=== PATIENT | male | born 1965 | race Caucasian/White ===

== ENCOUNTER 2016-10-02 23:02 | Emergency (ER) | payer OTHER ==
[~2016-10-02] VITALS: Ht 177.8 cm; Wt 127.0 kg
--- NOTE | ~2016-10-02 | EKG ---
[address] [place] [address] ELECTROCARDIOGRAM REPORT Name: DESTIN WHITFIELD ANABEL [facility] [id number] Admission: 10/02/16 Attend Phys: Discharge: 10/03/16 Date of : 69 Report #: [id number] THIS REPORT FOR: //name// [facility] ED Test Date: 2016-10-02 Test Time: 23:29:20 Pat Name: DESTIN WHITFIELD Department: Room: Gender: Spring Former: FEDERICO : 1965 Requested By: Giovani Tripathi Order Number: [id number] MD: Devonte Camacho Measurements Intervals [place] Rate: 91 P: 46 [place]: 156 QRS: 39 QRSD: 100 T: 62 QT: 359 QTc: 442 Interpretive Statements Sinus rhythm No significant abnormality Compared to ECG 01/30/2015 12:20:15 No significant change was found Electronically Signed On 10-03-2016 16:00:44 CDT by Devonte Camacho [email or web address] <ELECTRONICALLY SIGNED> By: Devonte Camacho MD, [facility] 10/03/16 1600 2329 2329 Devonte Camacho MD, FACC /EPI
--- NOTE | ~2016-10-02 | EKG ---
[address] [place] [address] ELECTROCARDIOGRAM REPORT Name: WHITFIELDDESTIN Room #: DEP Julian#: [id number] Admission: 10/02/16 Attend Phys: Discharge: 10/03/16 Date of : 69 Report #: [id number] THIS REPORT FOR: //name// [facility] ED Test Date: 2016-10-02 Test Time: 23:28:41 Pat Name: DESTIN WHITFIELD Department: Room: Gender: Court Assistant: FEDERICO : 1965 Requested By: Giovani Tripathi Order Number: [id number] MD: Measurements Intervals [place] Rate: 102 P: 42 [place]: 160 QRS: 43 QRSD: 92 T: 54 QT: 349 QTc: 455 Interpretive Statements Sinus tachycardia Probable left atrial enlargement Baseline wander in lead(s) V2 Compared to ECG 01/30/2015 12:20:15 No significant changes [email or web address] By: 27 27 Epiphany Epiphany, /EPI
--- NOTE | ~2016-10-02 | EKG ---
[address] [place] [address] ELECTROCARDIOGRAM REPORT Name: DESTIN WHITFIELD ANABEL [facility] [id number] Admission: 10/02/16 Attend Phys: Discharge: 10/03/16 Date of : 69 Report #: [id number] THIS REPORT FOR: //name// [facility] ED Test Date: 2016-10-02 Test Time: 23:28:41 Pat Name: DESTIN WHITFIELD Department: Room: Gender: Brake Lining Curer: FEDERICO : 1965 Requested By: Giovani Tripathi Order Number: [id number] MD: Devonte Camacho Measurements Intervals [place] Rate: 102 P: 42 [place]: 160 QRS: 43 QRSD: 92 T: 54 QT: 349 QTc: 455 Interpretive Statements Sinus tachycardia Baseline wander in lead(s) V2 Compared to ECG 01/30/2015 12:20:15 No significant changes Electronically Signed On 10-03-2016 16:00:14 CDT by Devonte Camacho [email or web address] <ELECTRONICALLY SIGNED> By: Devonte Camacho MD, [facility] 10/03/16 1600 27 Devonte Camacho MD, FACC /EPI
[~2016-10-02 23:02] MED LIST: BP MED; CLEOCIN HCL150 MG PO; COLACE100 MG PO; FLEXERIL PO; HYDROCODON-ACE1 EAC5 PO; KEFLEX500 MG PO; LOPRESSOR25 PO; METFORMIN HCL500 MG; NORCO 5-325 TA1 EACH PO; ULTRAM 50MG TAB50 MG PO
[2016-10-02 23:38] LABS: BASOPHILS 0.9 % (0.0-2.0); HEMATOCRIT 46.6 % (42.0-52.0); HEMOGLOBIN 15.9 gm/dL (14.0-18.0); LYMPHOCYTES 22.2 % (24.0-44.0); MCH 29.9 pg (26.0-34.0); MCHC 34.1 g/dL (28.0-37.0); MCV 87.6 fL (80.0-100.0); MONOCYTES 8.4 % (1.0-8.0); PLATELET COUNT 226 thou/uL (150-400); POLYS 67.5 % (36.0-66.0); RBC 5.32 mil/uL (4.50-6.00); RDW 15.1 % (10.5-14.5); WBC 10.4 thou/uL (4.0-11.0)
[2016-10-02 23:46] LABS: POTASSIUM 4.3 mmol/L (3.5-5.1)
[2016-10-02 23:50] LABS: ALBUMIN 3.8 g/dL (3.4-5.0); TOTAL BILIRUBIN 0.3 mg/dL (<0.1-1.0); TOTAL PROTEIN 7.8 g/dL (6.4-8.2)
[2016-10-02 23:53] LABS: MANUAL DIFF NO
[2016-10-03] MEDS ORDERED: PRILOSEC OTC20 MG PO (01:56)
[2016-10-03] MEDS ORDERED: ULTRAM 50MG TAB50 MG PO (01:56)
[2016-10-03] MEDS ORDERED: CARAFATE 1 GM TA1 G1 PO (01:56)
[2016-10-03 02:38] LABS: URINE BILIRUBIN NEGATIVE (Negative); URINE COLOR YELLOW; URINE GLUCOSE-RANDOM* NEGATIVE (Negative); URINE KETONES NEGATIVE (Negative); URINE PROTEIN (DIPSTICK) NEGATIVE (Negative); URINE SPECIFIC GRAVITY 1.015 (1.003-1.035)
[2016-10-03 02:39] LABS: URINE BLOOD NEGATIVE (Negative); URINE LEUKOCYTES-REFLEX NEGATIVE (Negative); URINE UROBILINOGEN 0.2 E.U./dl (0.2-1.0)
[2016-10-03 02:49] VITALS: BP 156/84
[2016-10-03 03:08] LABS: AMP/METHAMP POSITIVE (Negative); BARBITURATES Negative (Negative); BENZODIAZEPINES Negative (Negative); COCAINE Negative (Negative); METHADONE Negative (Negative); OPIATES POSITIVE (Negative); PCP Negative (Negative); THC Negative (Negative)
== END 2016-10-03 02:50 | disposition home or self-care (01) ==
LOC: ER 23:02
PROVIDERS: Emergency Medicine
DX: K29.70 Gastritis, unspecified, without bleeding (principal); I10 Essential (primary) hypertension; E11.9 Type 2 diabetes mellitus without complications; F17.210 Nicotine dependence, cigarettes, uncomplicated; Z88.6 Allergy status to analgesic agent

== ENCOUNTER 2018-03-15 06:59 | Emergency (ER) | payer OTHER ==
[~2018-03-15] VITALS: Ht 177.8 cm; Wt 140.6 kg
[~2018-03-15 06:59] MED LIST changes: +AMOXICILLIN 50500 MG PO; +BIAXIN 500 MG500 M2 PO; +CARAFATE 1 GM TA1 G1 PO; +KEFLEX500 M1 PO; -METFORMIN HCL500 MG; +METFORMIN HCL500 MG PO; +PRILOSEC OTC20 MG PO; +PROBIOTIC1 EAC2 PO; +PROTONIX40 M1 PO
[2018-03-15] MEDS ORDERED: METFORMIN HCL500 MG PO (08:18)
[2018-03-15] MEDS ORDERED: LOPRESSOR25 PO ×2 (08:18)
[2018-03-15] MEDS ORDERED: NORCO 5-325 TA1 EACH PO (08:19)
[2018-03-15] MEDS ORDERED: AZITHROMYCIN 2250 MG PO (08:30)
[2018-03-15 08:38] VITALS: BP 138/77
== END 2018-03-15 08:38 | disposition home or self-care (01) ==
LOC: ER 06:59
DX: J20.9 Acute bronchitis, unspecified (principal); R07.89 Other chest pain; I10 Essential (primary) hypertension; E11.9 Type 2 diabetes mellitus without complications; F17.210 Nicotine dependence, cigarettes, uncomplicated; Z88.6 Allergy status to analgesic agent

== ENCOUNTER 2018-03-18 08:48 | Emergency (ER) | payer OTHER ==
[~2018-03-18] VITALS: Ht 177.8 cm; Wt 140.6 kg
--- NOTE | ~2018-03-18 | EKG ---
[address] [facility] [place] [address] ELECTROCARDIOGRAM REPORT Name: DESTIN WHITFIELD ANABEL Room #: DEP Julian#: [id number] Admission: 03/18/18 Attend Phys: Discharge: 03/18/18 Date of : 69 Report #: [id number] THIS REPORT FOR: //name// [facility] ED Test Date: 2018-03-18 Test Time: 09:27:22 Pat Name: DESTIN WHITFIELD Department: Room: Gender: Teradata Developer: aj : 1965 Requested By: Gia Maldonado Order Number: [id number] MD: Pete Summers Measurements Intervals [place] Rate: 83 P: 49 [place]: 162 QRS: 44 QRSD: 95 T: 77 QT: 381 QTc: 448 Interpretive Statements Sinus rhythm Compared to ECG 10/02/2016 23:29:20 No significant changes Electronically Signed On 03-19-2018 23:24:48 CLINICAL INFORMATICS SPECIALIST by Pete Summers [email or web address] <ELECTRONICALLY SIGNED> By: Pete Summers MD 03/19/18 2324 0927 09 Pete Summers MD /RAYSA
[~2018-03-18 08:48] MED LIST changes: +AZITHROMYCIN 2250 MG PO
[2018-03-18 09:18] LABS: ABSOLUTE NEUTROPHILS 5.3 thou/uL (1.4-8.2); BASOPHILS 1.1 % (0.0-2.0); EOSINOPHILS 3.7 % (0.0-3.0); HEMATOCRIT 46.5 % (42.0-52.0); HEMOGLOBIN 15.8 gm/dL (14.0-18.0); LYMPHOCYTES 22.6 % (24.0-44.0); MCH 29.8 pg (26.0-34.0); MCHC 33.9 g/dL (28.0-37.0); MCV 87.8 fL (80.0-100.0); MONOCYTES 10.9 % (1.0-8.0); PLATELET COUNT 262 thou/uL (150-400); POLYS 61.7 % (36.0-66.0); RBC 5.29 mil/uL (4.50-6.00); RDW 14.2 % (10.5-14.5); WBC 8.7 thou/uL (4.0-11.0)
[2018-03-18 09:26] LABS: ANION GAP 6 mmol/L (7-16); BUN 20 mg/dL (7-18); CALCIUM 9.1 mg/dL (8.5-10.1); CHLORIDE 104 mmol/L (98-107); CO2 29 mmol/L (21-32); CREATININE 1.1 mg/dL (0.7-1.3); GLUCOSE 112 mg/dL (74-106); POTASSIUM 4.4 mmol/L (3.5-5.1); SODIUM 139 mmol/L (136-145)
[2018-03-18 09:34] LABS: ALBUMIN 3.7 g/dL (3.4-5.0); DIRECT BILIRUBIN < 0.1 mg/dL (<0.1-0.3); LIPASE 202 U/L (73-393); SGOT 33 U/L (15-37); SGPT 67 U/L (30-65); TOTAL BILIRUBIN 0.4 mg/dL (<0.1-1.0); TOTAL PROTEIN 8.2 g/dL (6.4-8.2); TROPONIN-I <0.06 ng/mL (<0.06)
[2018-03-18 12:12] LABS: URINE BILIRUBIN NEGATIVE (Negative); URINE BLOOD NEGATIVE (Negative); URINE CLARITY CLEAR; URINE COLOR YELLOW; URINE GLUCOSE-RANDOM* NEGATIVE (Negative); URINE KETONES NEGATIVE (Negative); URINE LEUKOCYTES NEGATIVE (Negative); URINE NITRITE NEGATIVE (Negative); URINE PROTEIN (DIPSTICK) NEGATIVE (Negative); URINE SPECIFIC GRAVITY >= 1.030 (1.005-1.035); URINE UROBILINOGEN 0.2 E.U./dl (0.2-1.0)
[2018-03-18] MEDS ORDERED: PROTONIX40 MG PO ×2 (14:44)
[2018-03-18] MEDS ORDERED: AMOXICILLIN 50500 MG PO (14:44)
[2018-03-18] MEDS ORDERED: BIAXIN 500 MG500 M2 PO (14:44)
[2018-03-18] MEDS ORDERED: OXYCODONE HCL 55 MG PO (14:45)
[2018-03-18 15:36] VITALS: BP 153/88
== END 2018-03-18 14:55 | disposition home or self-care (01) ==
LOC: ER 08:48
PROVIDERS: Student in an Organized Health Care Education/Training Program
DX: B96.81 Helicobacter pylori [H. pylori] as the cause of diseases classified elsewhere (principal); F17.210 Nicotine dependence, cigarettes, uncomplicated; I10 Essential (primary) hypertension; E11.9 Type 2 diabetes mellitus without complications; Z88.6 Allergy status to analgesic agent

== ENCOUNTER 2018-05-14 08:34 | Emergency (ER) | payer OTHER ==
[~2018-05-14] VITALS: Ht 177.8 cm; Wt 120.2 kg
[~2018-05-14 08:34] MED LIST changes: +OXYCODONE HCL 55 MG PO; +PROTONIX40 MG PO
[2018-05-14 09:14] LABS: ANION GAP 13 mmol/L (7-16); BUN 17 mg/dL (7-18); CALCIUM 9.8 mg/dL (8.5-10.1); CHLORIDE 103 mmol/L (98-107); CO2 23 mmol/L (21-32); CREATININE 1.5 mg/dL (0.7-1.3); GLUCOSE 154 mg/dL (74-106); POTASSIUM 3.8 mmol/L (3.5-5.1); SODIUM 139 mmol/L (136-145)
[2018-05-14 09:23] LABS: ALBUMIN 3.6 g/dL (3.4-5.0); LIPASE 507 U/L (73-393); SGOT 23 U/L (15-37); SGPT 31 U/L (30-65); TOTAL BILIRUBIN 0.4 mg/dL (<0.1-1.0); TOTAL PROTEIN 7.2 g/dL (6.4-8.2); TROPONIN-I <0.06 ng/mL (<0.06)
[2018-05-14 10:25] LABS: HEMATOCRIT 47.2 % (42.0-52.0); HEMOGLOBIN 16.1 gm/dL (14.0-18.0); MCH 29.5 pg (26.0-34.0); MCV 86.8 fL (80.0-100.0); RBC 5.44 mil/uL (4.50-6.00); RDW 14.9 % (10.5-14.5); WBC 9.5 thou/uL (4.0-11.0)
[2018-05-14 11:06] LABS: URINE CLARITY CLEAR; URINE COLOR YELLOW
[2018-05-14 11:07] LABS: URINE BILIRUBIN NEGATIVE (Negative); URINE BLOOD NEGATIVE (Negative); URINE GLUCOSE-RANDOM* NEGATIVE (Negative); URINE KETONES NEGATIVE (Negative); URINE LEUKOCYTES-REFLEX NEGATIVE (Negative); URINE NITRITE-REFLEX NEGATIVE (Negative); URINE PROTEIN (DIPSTICK) TRACE (Negative); URINE UROBILINOGEN 0.2 E.U./dl (0.2-1.0)
[2018-05-14 11:14] LABS: AMP/METHAMP POSITIVE (Negative); BARBITURATES Negative (Negative); BENZODIAZEPINES Negative (Negative); COCAINE Negative (Negative); METHADONE Negative (Negative); OPIATES POSITIVE (Negative); PCP Negative (Negative)
--- NOTE | 2018-05-14 12:06 | EKG ---
[address] [address] [place] [address] ELECTROCARDIOGRAM REPORT Name: DESTIN WHITFIELD ANABEL Room #: REG [facility] [id number] Admission: 05/14/18 Attend Phys: Discharge: Date of : 69 Report #: [id number] THIS REPORT FOR: //name// [facility] ED Test Date: 2018-05-14 Test Time: 09:06:15 Pat Name: DESTIN WHITFIELD Department: Room: Gender: M Machine Inker: as : 1965 Requested By: Uziel Gonzalez Order Number: [id number] MD: Devonte Camacho Measurements Intervals [place] Rate: 110 P: 46 NE: 144 QRS: 46 QRSD: 96 T: 62 QT: 342 QTc: 463 Interpretive Statements Sinus tachycardia Otherwise no significant abnormality Compared to ECG 03/18/2018 09:27:22 heart rate has increased Electronically Signed On 05-14-2018 12:06:48 ORACLE SOA DEVELOPER by Devonte Camacho [email or web address] <ELECTRONICALLY SIGNED> By: Devonte Camacho MD, [facility] 05/14/18 1206 0906 5 Devonte Camacho MD, FACC /EPI
[2018-05-14] MEDS ORDERED: NORCO 5-325 TA1 EACH PO (12:53)
[2018-05-14 13:25] VITALS: BP 144/68
== END 2018-05-14 13:26 | disposition home or self-care (01) ==
LOC: ER 08:34
PROVIDERS: Emergency Medicine
DX: R10.12 Left upper quadrant pain (principal); R74.8 Abnormal levels of other serum enzymes; E11.9 Type 2 diabetes mellitus without complications; I10 Essential (primary) hypertension; F17.210 Nicotine dependence, cigarettes, uncomplicated; Z90.49 Acquired absence of other specified parts of digestive tract; Z79.899 Other long term (current) drug therapy; Z88.6 Allergy status to analgesic agent; S22.32XA Fracture of one rib, left side, initial encounter for closed fracture; X58.XXXA Exposure to other specified factors, initial encounter; Y93.89 Activity, other specified; Y92.89 Other specified places as the place of occurrence of the external cause; Y99.8 Other external cause status

== ENCOUNTER 2018-11-01 21:32 | Inpatient (IN) | payer OTHER ==
[~2018-11-01] VITALS: Ht 177.8 cm; Wt 140.5 kg
--- NOTE | ~2018-11-01 | P ---
[facility] [place] [address] PROCEDURE REPORT Name: DESTIN WHITFIELD ANABEL Room #: 209-P ADM IN M.R.#: [id number] Admission: 11/01/18 ������������������ Attend Phys: Pablo Ga MD Discharge: ������������������ Date of : 69 Report #: [id number] THIS REPORT FOR: //name// CC: JANIS physician/PCP FAM unknown Pablo Ga DATE OF SERVICE: 11/05/2018 LOCATION: [facility]. PREOPERATIVE DIAGNOSES: Lymphedema with venous stasis of right leg with blistering wound and extensive nonviable blistered epithelium. POSTOPERATIVE DIAGNOSES: Lymphedema with venous stasis of right leg with blistering wound and extensive nonviable blistered epithelium with right anterior leg 15 cm x 5 cm blistered wound with nonviable skin. PROCEDURE: Selective open wound debridement of right anterior leg with removal of epithelium 15 cm x 5 cm. PROCEDURE DESCRIPTION: Without the need for anesthesia, the patient's right leg was seemed to be blistered with nonviable surface epithelium after the blister had ruptured. Using a forceps and scalpel, nonviable epithelium was removed and unroofed from the blister over 15 cm x 5 cm area exposing a fibrinous base. There was no bleeding. There were some areas at posterior leg, not ready for selective debridement. Selective open wound debridement was done with removal of epithelium from 15 cm x 5 cm area. The patient tolerated the procedure well. Dressings were continued. ��������������������������������������������� ���������������������������������������� By: ��������������������������������������������� 1341 1412 uJstin Grimes MD /wilmar
[2018-11-01 21:41] VITALS: BP 151/76
[2018-11-01 22:06] LABS: HEMATOCRIT 46.2 % (42.0-52.0); HEMOGLOBIN 15.4 gm/dL (14.0-18.0); MCH 29.2 pg (26.0-34.0); MCHC 33.4 g/dL (28.0-37.0); MCV 87.5 fL (80.0-100.0); PLATELET COUNT 179 thou/uL (150-400); RBC 5.28 mil/uL (4.50-6.00); RDW 15.4 % (10.5-14.5); WBC 21.4 thou/uL (4.0-11.0)
[2018-11-01 22:20] LABS: ANION GAP 13 mmol/L (7-16); BUN 13 mg/dL (7-18); CALCIUM 8.4 mg/dL (8.5-10.1); CHLORIDE 99 mmol/L (98-107); CO2 22 mmol/L (21-32); CREATININE 1.4 mg/dL (0.7-1.3); GLUCOSE 144 mg/dL (74-106); POTASSIUM 3.9 mmol/L (3.5-5.1); SODIUM 134 mmol/L (136-145)
[2018-11-01 22:22] LABS: TROPONIN-I <0.06 ng/mL (<0.06)
[2018-11-01 23:13] LABS: ABSOLUTE NEUTROPHILS 19.5 thou/uL (1.4-8.2); PLATELET ESTIMATE NORMAL
[2018-11-01 23:15] VITALS: BP 145/83
[2018-11-01 23:21] VITALS: BP 134/92
[2018-11-02] VITALS (7 sets, daily range): BP systolic 120–146; BP diastolic 48–86
[2018-11-02] MEDS ORDERED: BP MED (00:15)
[2018-11-02] MEDS ORDERED: METFORMIN HCL500 MG PO ×2 (00:15)
[2018-11-02 04:04] LABS: ALBUMIN 2.7 g/dL (3.4-5.0); CALCIUM 7.9 mg/dL (8.5-10.1); CREATININE 1.4 mg/dL (0.7-1.3); MAGNESIUM 1.7 mg/dL (1.8-2.4); POTASSIUM 4.2 mmol/L (3.5-5.1); TOTAL BILIRUBIN 0.9 mg/dL (<0.1-1.0); TOTAL PROTEIN 7.3 g/dL (6.4-8.2)
[2018-11-02 04:39] LABS: HEMATOCRIT 43.7 % (42.0-52.0); HEMOGLOBIN 14.4 gm/dL (14.0-18.0); MCH 29.4 pg (26.0-34.0); MCV 89.2 fL (80.0-100.0); RBC 4.89 mil/uL (4.50-6.00); RDW 15.4 % (10.5-14.5); WBC 17.1 thou/uL (4.0-11.0)
--- NOTE | 2018-11-02 07:40 | EKG ---
[address] [place] [address] ELECTROCARDIOGRAM REPORT Name: DESTIN WHITFIELD ANABEL Room #: 209-P ADM IN M.R.#: [id number] ������������������ Admission: 11/01/18 ������������������ Attend Phys: Pablo Ga MD Discharge: ������������������ Date of : 69 Report #: [id number] ����������������������������������������������������������������� [id number] THIS REPORT FOR: //name// [facility] ED Test Date: 2018-11-01 Test Time: 21:45:25 Pat Name: DESTIN WHITFIELD Department: Room: 209 Gender: M District Court Reporter: ARIN : 1965 Requested By: Giovani Tripathi Order Number: [id number] MD: Devonte Camacho Measurements Intervals [place] Rate: 138 P: 52 SD: 132 QRS: 69 QRSD: 89 T: 57 QT: 310 QTc: 470 Interpretive Statements Sinus tachycardia Otherwise no significant abnormality Compared to ECG 05/14/2018 09:06:15 No significant changes Electronically Signed On 11-02-2018 7:40:32 CDT by Devonte Camacho [email or web address] ��������������������������������������������� <ELECTRONICALLY SIGNED> ���������������������������������������� By: Devonte Camacho MD, [facility] ��������������������������������������������� 11/02/18 0740 2145 44 Devonte Camacho MD, FACC /EPI
--- NOTE | 2018-11-02 09:30 | 2DMMODE ---
[facility] [place] [address] 2 D/M-MODE ECHOCARDIOGRAM Name: DESTIN WHITFIELD ANABEL Room #: 209-P ADM IN M.R.#: [id number] ������������� Admission: 11/01/18 ������������� Attend Phys: Pablo Ga MD Discharge: ��� ������������� ��� Date of : 69 Date of Service: 11/02/18 0930 �� Report #: [id number] �������� ��������������������������������������������[id number] THIS REPORT FOR: //name// APPROVED REPORT Study performed: 11/02/2018 08:47:14 EXAM: Comprehensive 2D, Doppler, and color-flow Echocardiogram Patient Location: Bedside Room #: 209 Status: routine BSA: 2.57 HR: 107 bpm BP: 120/48 mmHg Rhythm: NSR/Tachy Other Information Study Quality: Adequate Indications Elevated BNP, edema, short of breath. Hx: HTN, DM, tobacco abuse. 2D Dimensions RVDd: 40.10 mm IVSd: 12.42 (7-11mm) LVOT Diam: 23.81 (18-24mm) LVDd: 49.35 mm PWd: 12.71 (7-11mm) Ascending Ao: 32.12 (22-36mm) LVDs: 33.88 (25-40mm) Aortic Root: 36.40 mm Volumes Left Atrial Volume (Systole) Single Plane 4CH: 53.70 mL Single Plane 2CH: 50.52 mL LA ESV Index: 22.00 mL/m2 Aortic Valve AoV Peak Ryland.: 1.49 m/s AO Peak Gr.: 8.89 mmHg LVOT Max P.49 mmHg LVOT Max V: 1.06 m/s DEE DEE Vmax: 3.16 cm2 Mitral Valve E/A Ratio: 0.7 MV Decel. Time: 200.47 ms MV E Max Ryland.: 0.69 m/s [facility] [place] [address] 2 D/M-MODE ECHOCARDIOGRAM Name: DESTIN WHITFIELD [facility] Room #: 209-P ADM IN M.R.#: [id number] ������������� Admission: 11/01/18 ������������� Attend Phys: Pablo Ga MD Discharge: ��� ������������� ��� Date of : 69 Date of Service: 11/02/18 0930 �� Report #: [id number] �������� ��������������������������������������������[id number] MV A Ryland.: 0.95 m/s MV PHT: 58.14 ms IVRT: 78.43 ms Pulmonary Valve PV Peak Ryland.: 1.27 m/s PV Peak Gr.: 6.42 mmHg Tricuspid Valve TR Peak Ryland.: 2.69 m/s RAP Estimate: 5.00 mmHg TR Peak Gr.: 29.00 mmHg PA Pressure: 34.00 mmHg Left Ventricle The left ventricle is normal size. There is normal LV segmental wall motion. Mild concentric left ventricular hypertrophy. The left ventricular systolic function is normal. The left ventricular ejection fraction is within the normal range. LVEF is 55-60%. Mild diastolic dysfunction is present (impaired relaxation pattern). Right Ventricle The right ventricle is normal size. The right ventricular systolic function is normal. Atria The left atrium size is normal. The right atrium size is normal. Aortic Valve The aortic valve is normal in structure. No aortic regurgitation is present. There is no aortic valvular stenosis. Mitral Valve The mitral valve is normal in structure. Trace mitral regurgitation. Tricuspid Valve The tricuspid valve is normal in structure. Trace tricuspid regurgitation. Estimated PAP is 35mmHg. Pulmonic Valve The pulmonary valve is normal in structure. There is no pulmonic valvular regurgitation. Great Vessels The aortic root is normal in size. The ascending aorta is normal in [facility] [address] [place] [address] 2 D/M-MODE ECHOCARDIOGRAM Name: DESTIN WHITFIELD ANABEL Room #: 209-P [facility] IN .R.#: [id number] ������������� Admission: 11/01/18 ������������� Attend Phys: Pablo Ga MD Discharge: ��� ������������� ��� Date of : 69 Date of Service: 11/02/18 0930 �� Report #: [id number] �������� ��������������������������������������������[id number] size. IVC is normal in size and collapses >50% with inspiration. Pericardium There is no pericardial effusion. <Conclusion> The left ventricular systolic function is normal. There is normal LV segmental wall motion. LVEF is 55-60%. Mild diastolic dysfunction The aortic valve is normal in structure. No aortic regurgitation or stenosis. The mitral valve is normal in structure. Trace mitral regurgitation. Trace tricuspid regurgitation. Estimated pulmonary artery pressure of 35mmHg. There is no pericardial effusion. ��������������������������������������������� <ELECTRONICALLY SIGNED> ���������������������������������������� By: Devonte Camacho MD, FACC ��������������������������������������������� 11/02/18929 9 9 Devonte Camacho MD, FACC /INF
[2018-11-02 15:57] LABS: URINE BILIRUBIN NEGATIVE (Negative); URINE BLOOD NEGATIVE (Negative); URINE CLARITY CLOUDY; URINE COLOR YELLOW; URINE GLUCOSE-RANDOM* NEGATIVE (Negative); URINE KETONES NEGATIVE (Negative); URINE LEUKOCYTES-REFLEX NEGATIVE (Negative); URINE NITRITE-REFLEX NEGATIVE (Negative); URINE PROTEIN (DIPSTICK) 1+ (Negative); URINE SPECIFIC GRAVITY >= 1.030 (1.005-1.035)
[2018-11-02 16:04] LABS: CASTS None Seen /LPF (None Seen); SQUAMOUS 4-10 Moderate /LPF (0-3); URINE RBC 3-10 Few /HPF (0-2); URINE WBC-REFLEX 0-5 Rare /HPF (0-5)
[2018-11-02 16:05] LABS: BACTERIA-REFLEX None Seen /HPF (None Seen); CRYSTALS None Seen /LPF (None Seen)
[2018-11-03 04:07] LABS: GLYCOHEMOGLOBIN (HGB A1C) 6.6 % (4.8-5.6)
[2018-11-03 06:18] VITALS: BP 144/80
[2018-11-03 08:09] VITALS: BP 150/83
[2018-11-03 11:32] VITALS: BP 102/88
[2018-11-03 20:12] VITALS: BP 151/73
[2018-11-04 00:45] VITALS: BP 145/85
[2018-11-04 05:15] VITALS: BP 145/85
[2018-11-04 06:18] LABS: HEMATOCRIT 41.6 % (42.0-52.0); HEMOGLOBIN 13.3 gm/dL (14.0-18.0); MCH 29.4 pg (26.0-34.0); MCV 91.8 fL (80.0-100.0); PLATELET COUNT 146 thou/uL (150-400); RBC 4.53 mil/uL (4.50-6.00); RDW 16.1 % (10.5-14.5); WBC 8.9 thou/uL (4.0-11.0)
[2018-11-04 06:49] LABS: ALBUMIN 2.2 g/dL (3.4-5.0); CREATININE 0.9 mg/dL (0.7-1.3); MAGNESIUM 1.9 mg/dL (1.8-2.4); POTASSIUM 3.9 mmol/L (3.5-5.1); TOTAL BILIRUBIN 0.4 mg/dL (<0.1-1.0)
[2018-11-04 06:52] LABS: ABSOLUTE NEUTROPHILS 7.2 thou/uL (1.4-8.2)
[2018-11-04 06:53] LABS: ANISOCYTOSIS 2+
[2018-11-04 12:18] VITALS: BP 129/60
[2018-11-04 15:33] VITALS: BP 148/89
[2018-11-04 20:28] VITALS: BP 143/72
[2018-11-05 01:21] VITALS: BP 143/72
[2018-11-05 08:32] VITALS: BP 142/84
[2018-11-05 11:59] VITALS: BP 156/88
[2018-11-05 13:05] LABS: HEMATOCRIT 43.4 % (42.0-52.0); HEMOGLOBIN 14.5 gm/dL (14.0-18.0); MCH 29.2 pg (26.0-34.0); MCHC 33.5 g/dL (28.0-37.0); MCV 87.2 fL (80.0-100.0); RBC 4.98 mil/uL (4.50-6.00); RDW 15.4 % (10.5-14.5); WBC 12.3 thou/uL (4.0-11.0)
[2018-11-05 13:13] LABS: CALCIUM 8.4 mg/dL (8.5-10.1); CREATININE 0.9 mg/dL (0.7-1.3); POTASSIUM 4.2 mmol/L (3.5-5.1)
[2018-11-05 16:05] VITALS: BP 177/81
[2018-11-05 20:09] VITALS: BP 133/66
[2018-11-06 05:06] LABS: HEMATOCRIT 39.3 % (42.0-52.0); MCH 28.9 pg (26.0-34.0); MCV 87.6 fL (80.0-100.0); PLATELET COUNT 205 thou/uL (150-400); RBC 4.49 mil/uL (4.50-6.00); RDW 15.2 % (10.5-14.5); WBC 9.3 thou/uL (4.0-11.0)
[2018-11-06 05:40] VITALS: BP 160/106
[2018-11-06 07:11] LABS: ABSOLUTE NEUTROPHILS 6.5 thou/uL (1.4-8.2); METAMYELOCYTES 1 %
[2018-11-06 07:12] LABS: ANISOCYTOSIS 1+
--- NOTE | 2018-11-06 07:44 | HC ---
[facility] [place] [address] CONSULTATION Name: WHITFIELDSHERYLDESTIN ANABEL Room #: 209-P [facility] IN .R.#: [id number] Admission: 11/01/18 ������������������ Attend Phys: Pablo Ga MD Discharge: ������������������ Date of : [birth year] Report #: [id number] THIS REPORT FOR: //name// CC: JANIS physician/PCP FAM unknown Pablo Ga DATE OF SERVICE: 11/02/2018 CHIEF COMPLAINT: Cellulitis and ulcerations to the right lower extremity. HISTORY OF PRESENT ILLNESS: This is a 53-year-old male patient who was admitted through the Emergency Department with fever, chills, redness, swelling, and drainage to the right lower extremity. He has had nausea and has not eaten that much. He has been coughing and has had ongoing headache as well. I have been asked to see him with regard to wound care. The patient's past medical history positive for history of diabetes mellitus, but he has not taken any of his medications in the last 3 months. He states that he often forgets to take his medications and has not been very rigorous about caring for himself. PAST MEDICAL HISTORY: Positive for diabetes mellitus, previous cellulitis of his right leg in 2016, history of pancreatitis, duodenal ulcer, left knee surgery, hypertension, and bilateral lower extremity edema. FAMILY HISTORY: Positive for diabetes in his mother. SOCIAL HISTORY: The patient smoke cigarettes 1 pack per day for 35 years. No alcohol use. No drug use. ALLERGIES: Include IBUPROFEN. MEDICATIONS: Includes amoxicillin, Biaxin, pantoprazole, OxyIR, metoprolol, and metformin. REVIEW OF SYSTEMS: CONSTITUTIONAL: The patient does have fever and chills. Denies recent weight loss. NEUROLOGICAL: The patient denies focal weakness, numbness, or tingling. EYES: The patient denies visual changes, redness, or drainage. ENT: The patient denies earache, nasal drainage, sore throat. CARDIOVASCULAR: The patient denies chest pain, palpitations, or diaphoresis. PULMONARY: The patient denies cough or shortness of breath. GASTROINTESTINAL: The patient does have nausea and abdominal pain. ORTHOPEDIC: The patient complains of severe pain, swelling, and drainage from the right lower extremity, less so from the left side. [address] [address] CONSULTATION Name: EDSTIN WHITFIELD ANABEL Room #: 209-P ADM IN M.R.#: [id number] Admission: 11/01/18 ������������������ Attend Phys: Pablo Ga MD Discharge: ������������������ Date of : 69 Report #: [id number] Other systems in a 14-point review of systems are negative. PHYSICAL EXAMINATION: VITAL SIGNS: Include temperature 36.4, pulse 100, respiratory rate of 18, and blood pressure 139/81. GENERAL: This is a chronically ill-appearing male patient who appears to be in no distress. HEENT: Head normocephalic. Nose and throat clear. NECK: Supple. LUNGS: Clear. HEART: Regular. ABDOMEN: Bowel sounds present. EXTREMITIES: Demonstrate significant swelling to both lower extremities, much more so on the right than the left. He has several ulcerations that appear to be venous in origin involving the right lower leg. There is significant warmth, redness, and tenderness of the right lower extremity. NEUROLOGIC: The patient is alert, oriented, and appropriate. LABORATORY DATA: Include sodium 134, potassium 3.9, chloride 99, CO2 22, BUN 13, creatinine 1.4, calcium is 8.4, and glucose 144. White blood cell count 21.4, hemoglobin 15.4, and hematocrit 46.2. CLINICAL IMPRESSION: 1. Cellulitis, bilateral lower extremities, right greater than left. 2. Venous type ulcerations, right lower leg. 3. Venous insufficiency/lymphedema, bilateral lower extremities. 4. Diabetes mellitus, poorly controlled. 5. Morbid obesity. RECOMMENDATIONS: At this point in time, we will recommend topical Silvadene, morphine compound followed by Xeroform gauze, gently apply Kerlix. Due to the cellulitis, I cannot utilize significant compression without worrying about worsening the cellulitis at this time. We will check a hemoglobin A1c. I have encouraged him to be vigilant about his control of his blood glucose including nutrition as well as exercise and weight loss. He is on empiric antibiotic therapy. We have taken a culture and sensitivity from one of the open areas of the right leg. All questions have been answered and I appreciate being asked to see him in consultation. ��������������������������������������������� <ELECTRONICALLY SIGNED> ���������������������������������������� By: Augie Lai MD ��������������������������������������������� 11/06/18 0744 1751 0116 Augie Lai MD /nt
[2018-11-06 07:54] VITALS: BP 175/109
[2018-11-06 15:51] VITALS: BP 160/69
[2018-11-06 21:01] VITALS: BP 135/60
[2018-11-07 05:04] VITALS: BP 158/79
[2018-11-07 08:14] VITALS: BP 150/97
[2018-11-07 11:51] VITALS: BP 139/73
[2018-11-07 15:40] VITALS: BP 124/82
[2018-11-07 19:38] VITALS: BP 171/78
[2018-11-08 04:12] VITALS: BP 150/71
[2018-11-08 07:53] VITALS: BP 131/79
[2018-11-08 17:20] VITALS: BP 151/81
[2018-11-08 19:31] VITALS: BP 134/80
[2018-11-09 05:20] VITALS: BP 155/81
[2018-11-09 07:50] VITALS: BP 137/75
[2018-11-09] MEDS ORDERED: DOXYCYCLINE HYC50 MG PO (11:35)
[2018-11-09] MEDS ORDERED: KEFLEX500 M1 PO (11:35)
[2018-11-09 15:59] VITALS: BP 137/75
--- NOTE | 2018-11-11 14:35 | HC ---
[facility] [place] [address] CONSULTATION Name: WHITFIELDDESTIN ANABEL Room #: 423-1 [facility] IN M.R.#: [id number] Admission: 11/01/18 ������������������ Attend Phys: Pablo Ga MD Discharge: 11/09/18 ������������������ Date of : 69 Report #: [id number] THIS REPORT FOR: //name// CC: JANIS physician/PCP FAM unknown Pablo Ga DATE OF SERVICE: 11/08/2018 HISTORY OF PRESENT ILLNESS: This is a 53-year-old male patient who was evaluated by me for headache. The patient is in for cellulitis. It started few days prior to admission and he indicated the headache started about the same time. It is a generalized headache. He does not know anything which brings it on or makes it better. He does have underlying diabetes and cellulitis. He got some Toradol and that made his headache better. REVIEW OF SYSTEMS: A 14-point review of systems was carried out and it demonstrated leg swelling because of cellulitis, diabetes, hypertension, knee surgery, history of pancreatitis. He is on antibiotics. He says he has a metal in his ankle, but looks like he had an MRI at one time for the tibia-fibula in 2016. Metal is there for 10-15 years. He does have some shortness of breath and some productive cough. A 14-point review of system was otherwise noncontributory. PAST MEDICAL HISTORY: Positive for diabetes. FAMILY HISTORY: Negative for early age stroke. SOCIAL HISTORY: He does have a history of smoking. PHYSICAL EXAMINATION: Indicates he is alert, responsive, able to follow simple and complex commands. His speech, concentration, fund of knowledge and memory is at his baseline. Cranial nerve examination 2-12 looks mostly unremarkable. His sensation is present on both sides. Neuromuscular examination is difficult to carry out because the patient has bandages on both lower extremities, but his position sense looks intact. Cuymha-su-dwff looks intact. There is no meningeal sign. Cardiac examinations appear unremarkable. His pulses are difficult to tell because of his bandages. Blood pressure is 131/79, respirations 18, pulse is 109, temperature is 97.7. LABORATORY DATA: His white count was high at 17.1, is 9.3 now. He did not have any imaging study of the brain. IMPRESSION: Headache, which is going on for several days. There is no focality which I can detect. He is a diabetic, so it will be desirable to do some more workup in this patient. I think we will go ahead and do the [place] [address] CONSULTATION Name: DESTIN WHITFIELD ANABEL Room #: 423-1 [facility] IN .R.#: [id number] Admission: 11/01/18 ������������������ Attend Phys: Pablo Ga MD Discharge: 11/09/18 ������������������ Date of : 69 Report #: [id number] can do an MRI on him since he had MRI in the past, but his headache is becoming better and if it does become better we may not. I discussed all of it with the patient. The patient understands, he wants to follow this plan. ��������������������������������������������� <ELECTRONICALLY SIGNED> ���������������������������������������� By: Itz Lock MD ��������������������������������������������� 11/11/18 1435 1527 2137 Itz Lock MD /nt
== END 2018-11-09 16:32 | disposition home or self-care (01) | DRG 871 ==
LOC: ER 21:32 → 4E 23:16 → EROBS 23:16 → 2N 23:16 → 4E 11-07 15:28 → ENTRNSPT 11-09 16:20 → 4E 11-09 16:32
PROVIDERS: Emergency Medicine; Emergency Medicine Emergency Medical Services; Nurse Practitioner Acute Care; ADMIT Internal Medicine
PROC: 0HBKXZZ Excision of Right Lower Leg Skin, External Approach (ICD-10-PCS; principal; 2018-11-05)
DX: A41.9 Sepsis, unspecified organism (principal); I50.31 Acute diastolic (congestive) heart failure; L03.115 Cellulitis of right lower limb; L03.116 Cellulitis of left lower limb; N17.9 Acute kidney failure, unspecified; E44.0 Moderate protein-calorie malnutrition; Z68.41 Body mass index [BMI] 40.0-44.9, adult; I13.0 Hypertensive heart and chronic kidney disease with heart failure and stage 1 through stage 4 chronic kidney disease, or unspecified chronic kidney disease; E66.01 Morbid (severe) obesity due to excess calories; E11.22 Type 2 diabetes mellitus with diabetic chronic kidney disease; I87.2 Venous insufficiency (chronic) (peripheral); F17.210 Nicotine dependence, cigarettes, uncomplicated; N18.9 Chronic kidney disease, unspecified; E88.09 Other disorders of plasma-protein metabolism, not elsewhere classified; S80.821A Blister (nonthermal), right lower leg, initial encounter; X58.XXXA Exposure to other specified factors, initial encounter; Y93.89 Activity, other specified; Y92.89 Other specified places as the place of occurrence of the external cause; Y99.8 Other external cause status; Z88.6 Allergy status to analgesic agent; Z83.3 Family history of diabetes mellitus; Z71.6 Tobacco abuse counseling; Z87.11 Personal history of peptic ulcer disease
CPT/HCPCS: 10081; 10783

== ENCOUNTER 2018-11-10 13:54 | Inpatient (IN) | payer OTHER ==
[~2018-11-10] VITALS: Ht 177.8 cm; Wt 141.5 kg
[~2018-11-10 13:54] MED LIST changes: +DOXYCYCLINE HYC50 MG PO
[2018-11-10 13:57] VITALS: BP 142/81
[2018-11-10 15:41] LABS: ABSOLUTE NEUTROPHILS 11.7 thou/uL (1.4-8.2); BASOPHILS 0.3 % (0.0-2.0); EOSINOPHILS 0.3 % (0.0-3.0); HEMATOCRIT 41.7 % (42.0-52.0); HEMOGLOBIN 13.8 gm/dL (14.0-18.0); LYMPHOCYTES 10.5 % (24.0-44.0); MCH 28.9 pg (26.0-34.0); MCHC 33.2 g/dL (28.0-37.0); MCV 87.2 fL (80.0-100.0); MONOCYTES 11.1 % (1.0-8.0); PLATELET COUNT 433 thou/uL (150-400); POLYS 77.8 % (36.0-66.0); RBC 4.79 mil/uL (4.50-6.00); RDW 15.2 % (10.5-14.5)
[2018-11-10 15:46] LABS: CALCIUM 8.8 mg/dL (8.5-10.1); CREATININE 2.7 mg/dL (0.7-1.3); POTASSIUM 3.8 mmol/L (3.5-5.1)
[2018-11-10 15:53] LABS: ALBUMIN 2.9 g/dL (3.4-5.0); TOTAL BILIRUBIN 0.3 mg/dL (<0.1-1.0); TOTAL PROTEIN 8.7 g/dL (6.4-8.2)
[2018-11-10 18:00] VITALS: BP 145/82
[2018-11-10 18:15] VITALS: BP 113/66
[2018-11-10 18:44] VITALS: BP 154/83
--- NOTE | 2018-11-10 19:34 | NUR ---
1835-Pt came to unit from ER. Report was given to incoming shift RNOnelia.
[2018-11-10 23:40] VITALS: BP 147/76
--- NOTE | 2018-11-11 00:50 | NUR ---
ASSUMED CARE OF PATIENT AT 1900. VSS, AFEBRILE. NEW ADMISSION FROM ER AT 1830. ABLE TO URINATE WHEN OFFERED A URINAL AND STATES HE IS PASSING GAS, DID NOT WANT TO TAKE THE MAG CITRATE. IV FLUIDS INFUSING, EDUCATION GIVEN. PICTURES OF LEGS TAKEN. C/O PAIN IN LEGS AND INABILITY TO SLEEP. ORDER OBTAINED FOR TEMAZEPAM. WAS ABLE TO SLEEP, AROUSES EASILY. WILL SEND URINE SAMPLE TO LAB. POC GOALS ESTABLISHED.
[2018-11-11 03:23] LABS: URINE BILIRUBIN NEGATIVE (Negative); URINE BLOOD NEGATIVE (Negative); URINE CLARITY CLEAR; URINE COLOR YELLOW; URINE GLUCOSE-RANDOM* NEGATIVE (Negative); URINE KETONES NEGATIVE (Negative); URINE LEUKOCYTES NEGATIVE (Negative); URINE NITRITE NEGATIVE (Negative); URINE PROTEIN (DIPSTICK) NEGATIVE (Negative); URINE UROBILINOGEN 0.2 E.U./dl (0.2-1.0)
--- NOTE | 2018-11-11 03:32 | NUR ---
PATIENT C/O PAIN IN ABDOMEN, THIS RN SUGGESTED TO TRY TO USE THE BATHROOM FOR A BOWELMOVEMENT. STATED HE HAD ONE YESTERDAY. HE ISN'T CONSTIPATED AND IS PASSING GAS. REQUESTING ORDER FOR HEATING PAD. REFUSED MAG CITRATE. ASKING FOR MILK AND MORE FOOD WELL. ENCOURAGED LIQUIDS AND GAVE HIM A POPSICLE. WILL CONTINUE TO MONITOR.
[2018-11-11 03:45] VITALS: BP 137/86
[2018-11-11 05:44] LABS: HEMOGLOBIN 12.5 gm/dL (14.0-18.0); MCH 28.9 pg (26.0-34.0); MCV 87.7 fL (80.0-100.0); RBC 4.33 mil/uL (4.50-6.00); RDW 15.6 % (10.5-14.5); WBC 8.6 thou/uL (4.0-11.0)
[2018-11-11 05:53] LABS: CALCIUM 7.9 mg/dL (8.5-10.1); POTASSIUM 3.8 mmol/L (3.5-5.1)
[2018-11-11 05:54] LABS: CREATININE 1.5 mg/dL (0.7-1.3)
[2018-11-11 08:01] VITALS: BP 126/76
[2018-11-11 16:11] VITALS: BP 146/93
[2018-11-11 19:00] VITALS: BP 141/76
--- NOTE | 2018-11-11 19:50 | NUR ---
PATIENT ALERT AND ORIENTED AND RESTING MOST OF THE DAY. SEVERAL BOWEL MOVEMENTS TODAY BUT CONTINUE DISTENDED ABDOMEN AND FIRM. CT SCAN SHOWED ENLARGED LYMPH NODES PER DR. KELLY. PATIENT STATES HE WOULD LIKE TO GO HOME. HE MENTIONED HIS MAY VISIT THIS EVENING. NO INSULIN NEEDED FOR POC BLOOD SUGARS.
--- NOTE | 2018-11-12 00:44 | NUR ---
PT AMBULATING TO BATHROON INDEPENDENTLY AND IS TOLERATING FAIR. MORPHINE PROVIDING PAIN RELIEF. DENIES NAUSEA. RESTING COMFORTABLY. NO NEEDS VOICED. CALL LIGHT WITHIN REACH. WILL CONTINUE TO PROVIDE FREQUENT OBSERVATION.
[2018-11-12 03:30] VITALS: BP 153/89
[2018-11-12 06:39] LABS: ABSOLUTE NEUTROPHILS 5.3 thou/uL (1.4-8.2); BASOPHILS 0.8 % (0.0-2.0); EOSINOPHILS 2.3 % (0.0-3.0); HEMATOCRIT 40.3 % (42.0-52.0); HEMOGLOBIN 13.4 gm/dL (14.0-18.0); LYMPHOCYTES 20.8 % (24.0-44.0); MCH 29.3 pg (26.0-34.0); MCHC 33.2 g/dL (28.0-37.0); MCV 88.2 fL (80.0-100.0); MONOCYTES 10.2 % (1.0-8.0); PLATELET COUNT 305 thou/uL (150-400); POLYS 65.9 % (36.0-66.0); RBC 4.57 mil/uL (4.50-6.00); RDW 15.5 % (10.5-14.5); WBC 8.1 thou/uL (4.0-11.0)
[2018-11-12 06:58] LABS: CALCIUM 8.3 mg/dL (8.5-10.1); CREATININE 1.2 mg/dL (0.7-1.3); POTASSIUM 4.4 mmol/L (3.5-5.1)
[2018-11-12 07:45] VITALS: BP 130/73
--- NOTE | 2018-11-12 10:31 | NUR ---
CONSULTED TO PLACE A MIDLINE FOR THIS PATIENT EXPENTED TO HAVE AN EXTENDED STAY AND A KNOWN DIFFICULT PIV ACCESS. ORDER NOTED AND A VERBAL CONSENT OBTAINED AFTER THE PROCEDURE WELL BENIFITS AND RISK FOR INFECTION AND DVT DISCUSSED. THE LEFT UPPER ARM CEPHALIC WAS WIDLEY PATENT. A #4F POWER MIDLINE WAS PLACED PER HOSPITAL POLICY AFTER A BEDSIDE TIMEOUT WAS COMPLETED. MIDLINE TRIMMED TO 14CM AND ADVANVCED WITHOUT DIFFICULTY. BRISK BLOOD RETURN AND FLUSH. LINE SECURED AND RELEASED FOR USE
[2018-11-12 15:51] VITALS: BP 165/87
--- NOTE | 2018-11-12 18:33 | NUR ---
PT REPORTS A NORMAL BM TODAY..DENIES N/V..TOLERATES REG DIET..GOOD APPETITE..
[2018-11-12 19:21] VITALS: BP 148/93
--- NOTE | 2018-11-13 03:00 | NUR ---
ASSUMED PT CARE AROUND 1900. A&OX4. C/O ABDOMINAL PAIN. PAIN IS TOLERABLE WITH PAIN MEDICATION. DENIES ANY N/V. PT SLEPT MOST OF THE NIGHT. RESP EVEN AND UNLABORED. NPO SINCE MIDNIGHT. PT APPEARS WORRIED ABOUT BIOPSY PROCEDURE TODAY. VOIDING ADEQUATELY PER URINAL. PROGRESSING SLOWLY TOWARD POC GOALS. WILL CONTINUE TO MONITOR FURTHER.
[2018-11-13 04:26] VITALS: BP 144/90
[2018-11-13 05:07] LABS: APTT 27.4 Seconds (24.5-32.8); PROTIME 10.2 Seconds (9.3-11.4)
[2018-11-13 07:20] VITALS: BP 143/78
--- NOTE | 2018-11-13 08:20 | HC ---
[facility] [place] [address] CONSULTATION Name: DESTIN WHITFIELD ANABEL Room #: 357-P ADM IN M.R.#: [id number] Admission: 11/10/18 ������������������ Attend Phys: Vin Mccain MD Discharge: ������������������ Date of : 69 Report #: [id number] THIS REPORT FOR: //name// CC: YOVANNY PEREZ [facility] physician/PCP BABS NDIAYE REQUESTING PHYSICIAN: Vin Mccain MD. REASON FOR CONSULTATION: Lymphadenopathy. HISTORY OF PRESENT ILLNESS: The patient is a 53-year-old gentleman who recently in the hospital for right leg cellulitis and was readmitted for abdominal pain and a CAT scan done on 11/11/2018 reported stable retroperitoneal adenopathy compared to 05/14/2018, but progression of bilateral inguinal adenopathy. The largest lymph node measures 1.9 cm in the short axis. The patient's recent history is notable that before the recent cellulitis admission, he had not had any weight change, fevers, chills, sweats. The patient does report and the chart documented a long-term history of cellulitis and lower extremity edema going back almost 3-1/2 to 4 years. The patient is hoping to get the cellulitis under control so that he might be able to have bilateral knee replacement because of bad osteoarthritis. PAST MEDICAL HISTORY: The patient has a history of hypertension, diabetes, pancreatitis, duodenal ulcer with H. pylori in the past, chronic bilateral lower extremity edema since at least by 2015. Also, has a history of left knee surgery. 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 Stopped drinking alcohol in [address] drugs. FAMILY HISTORY: Mother had diabetes, has 8 brothers, one has diabetes. One sister, no health issues. Three children who are alive and well. The patient has a fiance at home. No pets. MEDICATIONS: At this time in the hospital currently include morphine p.r.n., diphenhydramine p.r.n. Heparin 5000 units t.i.d. subcutaneous. Insulin on a sliding scale, cefazolin 1 gram q.6, IV fluids, hydrocodone p.r.n. PHYSICAL EXAMINATION: GENERAL: The patient appears his stated age. [address] [address] CONSULTATION Name: DESTIN WHITFEILD ANABEL Room #: [address] [place] [address] [place] ..#: [id number] Admission: 11/10/18 ������������������ Attend Phys: Vin Mccain MD Discharge: ������������������ Date of : 69 Report #: [id number] VITAL SIGNS: Recent height is 5 feet 10 inches, 177.8 cm. Weight is 312 pounds, 141.5 kilograms. Blood pressure is 130/73, O2 sat 94%, respirations 18, pulse 73, temperature afebrile at 97.8. MOOD: The patient is pleasant, slightly anxious. NEUROLOGIC: Face is symmetrical, moving extremities. Speech and thought pattern appear to be normal. LUNGS: Has good symmetric unlabored respiratory movement without rhonchi, rales. LYMPH NODE: No enlarged lymph nodes in the supraclavicular, cervical, axillary region. ABDOMEN: Very obese. No palpable organomegaly, but it would be hard to tell. EXTREMITIES: The patient does have bilateral extremity edema. He does have gauze wrapped in Kerlix around his right lower leg. LABORATORY DATA: BUN is 16, creatinine 1.2, AST 41, calcium 8.3, ALT 85. White count on admission 15, today 8.1; hemoglobin 13.4, stable. MCV 88.2, RDW 15.5, platelets 305, slight increase in neutrophils and monocytes and decrease in lymphocytes on a percentage basis. Sed rate of 63. UA was unremarkable. RADIOLOGIC STUDIES: Include this admit, CT abdomen and pelvis dated 11/11/2018. This was compared to CT of the abdomen and pelvis from 05/14/2018. It sounds like the organs looked normal. They did have a stable retroperitoneal adenopathy including portacaval nodes, aortocaval and bilateral iliac chain adenopathy. The nodes generally appeared to have increased in size and interval dimension. This is concerning for manifestations of lymphoma or metastatic disease. The largest right iliac chain node measures 2 cm x 2.6. There is also bilateral inguinal lymphadenopathy which has slightly progressed. The largest on the right now measures 1.9 cm short axis. No worrisome lytic or blastic bony lesions. ASSESSMENT AND PLAN: 1. Adenopathy in the setting of chronic cellulitis and lower extremity stasis, most likely reactive. We will check with Radiology to see if they think an ultrasound could differentiate reactive versus lymphoma or infectious. It might be best to wait till the patient is improved in several weeks and repeat the CAT scan at that time. He does not appear to have what I would attribute as B-symptoms from a lymphoma. If needed, could consider biopsy, but will get more information on from radiologist. 2. Cellulitis, currently on Ancef. 3. GI upset, about 50% better with change of antibiotics. He had been discharged on doxycycline and another antibiotic. 4. Diabetes. Sliding scale insulin and diet per others. 5. Hypertension. Meds per others. 6. Lower extremity swelling and edema: Deferred to others. 7. Degenerative joint disease of both knees. The patient is holding off on [facility] [address] [place] [address] CONSULTATION Name: DESTIN WHITFIELD Room #: 357-P ADM IN M.R.#: [id number] Admission: 11/10/18 ������������������ Attend Phys: Vin Mccain MD Discharge: ������������������ Date of : 69 Report #: [id number] surgery until he gets his infections under better control. We will follow with you. ��������������������������������������������� <ELECTRONICALLY SIGNED> ���������������������������������������� By: Navid Vieira MD ��������������������������������������������� 11/13/18 0820 1049 1248 Navid Vieira MD /nt
--- NOTE | 2018-11-13 09:09 | NUR ---
Pt admitted w/ abdominal pain, no urination, constipation/obstipation. Just dc'ed on 11/09, readmitted 11/10. EMR states RLE cellulitis, w/ RLE wounds at various stages of healing. Received consult for recurrent infection, diabetes. Pt seen 2x in the last week or so during previous admit by RDs. Seen again this AM. NPO for biopsy today. Pt again denies any diabetes or healthy eating education. Does allow RD to educate on protein importance, increased needs, and review protein sources. Recommend 1-2 sources/meal. Plan to restart Ensure Max daily at dinner once diet restarts (150 kcals, 30 g protein). Appetite excellent otherwise. BGs well controlled 78-137 mg/dl thus far; on Humalog SSI. Pt remains low nutrition risk d/t adequate po and known protein needs.
--- NOTE | 2018-11-13 09:22 | NUR ---
PT CONTINUES TO EXPERIENCE BURNING ABDOMINAL PAIN..MEDICATED WITH MORPHINE PRN AND AFTER DIET RESUMES MAY USE NORCO..ENCOURAGE AMBULATION..
[2018-11-13 11:41] VITALS: BP 152/84
--- NOTE | 2018-11-13 14:09 | NUR ---
INITIAL ASSESSMENT: KONSTANTIN reviewed chart and spoke with nursing and attending physician. Pt was recently discharged home on 11/09 on PO abx. Pt was admitted on 11/10 with RLE cellulitis. Pt is currently on IV abx. Pt to have lymph node bx today. SW attempted to meet with pt at bedside. Pt was sleeping soundly during time of visit. Per previous admission, pt lives at home with his s/o. Prior to admission, pt was independent with ADLs. Pt does not have health insurance and was provided with safety net clinic info and prescription discount card. Plan is for pt to discharge home when medically stable. KONSTANTIN is following to assist as needed with discharge planning.
[2018-11-13 15:41] VITALS: BP 164/85
[2018-11-13 19:51] VITALS: BP 149/99
[2018-11-14 03:59] VITALS: BP 134/74
--- NOTE | 2018-11-14 05:12 | NUR ---
PT IN BED RESTING. REMAINS SR ON MONITOR. PT CONTINUES ON RA. PT TO POSSIBLE D/C HOME TODAY. PT REQUIRED A FEW DOSES OF PO PAIN MEDS THROUGHOUT SHIFT.
[2018-11-14 07:37] VITALS: BP 136/52
[2018-11-14] MEDS ORDERED: AMMONIUM LACTA226 GM TOP (10:44)
[2018-11-14] MEDS ORDERED: MIRALAX17 GM PO (10:45)
[2018-11-14 13:06] VITALS: BP 136/52
--- NOTE | 2018-11-14 15:28 | HC ---
[facility] [place] [address] CONSULTATION Name: DESTIN WHITFIELD ANABEL Room #: 357-P [facility] IN .R.#: [id number] Admission: 11/10/18 ������������������ Attend Phys: Vin Mccain MD Discharge: ������������������ Date of : 69 Report #: [id number] THIS REPORT FOR: //name// CC: Vin Mccain [facility] physician/PCP DATE OF SERVICE: 11/13/2018 CHIEF COMPLAINT: Lower extremity ulcerations with cellulitis. HISTORY OF PRESENT ILLNESS: This is a 53-year-old patient with whom I am familiar from recent hospitalization. He was just discharged a few days ago and presented back with abdominal discomfort and constipation. He had been treated with intravenous antibiotics for cellulitis of his lower extremities, right greater than left. PAST MEDICAL HISTORY: Positive for diabetes mellitus, cellulitis of the right leg in 2016, history of pancreatitis, duodenal ulcer, left knee surgery, hypertension, bilateral lower extremity edema. FAMILY HISTORY: Positive for diabetes in his mother. SOCIAL HISTORY: The patient smokes cigarettes 1 pack per day for 35 years. No alcohol use, no drug use. ALLERGIES: IBUPROFEN. MEDICATIONS: Include amoxicillin, Biaxin, pantoprazole, OxyIR, metoprolol and metformin. REVIEW OF SYSTEMS: CONSTITUTIONAL: The patient denies fever, chills or weight loss. NEUROLOGICAL: The patient denies focal weakness, numbness or tingling. EYES: The patient denies visual changes, redness or drainage. ENT: The patient denies earache, nasal drainage or sore throat. CARDIOVASCULAR: The patient denies chest pain, palpitations or diaphoresis. PULMONARY: The patient denies cough or shortness of breath. GASTROINTESTINAL: The patient denies nausea, vomiting, diarrhea or abdominal pain. ORTHOPEDICS: The patient has some mild swelling of his lower extremities, some lymphadenopathy in the right groin area. Other systems in a 14-point review of systems are negative. PHYSICAL EXAMINATION: VITAL SIGNS: At this time include temperature 36.6, pulse 91, respiratory rate 18, blood pressure 152/84. [address] [address] CONSULTATION Name: DESTIN WHITFIELD [facility] Room #: [address] [place] [address] [place] .R.#: [id number] Admission: 11/10/18 ������������������ Attend Phys: Vin Mccain MD Discharge: ������������������ Date of : 69 Report #: [id number] GENERAL: This is a chronically ill-appearing male patient who appears to be in no distress. HEENT: Head is normocephalic. Nose and throat clear. NECK: Supple. LUNGS: Clear. HEART: Regular. ABDOMEN: Soft, bowel sounds present. There is very mild tenderness in the right lower portion of the abdomen. No guarding or rebound tenderness noted. Mild lymphadenopathy noted in the right groin area. EXTREMITIES: Lower extremities demonstrate 2+ edema, they are much improved. Coloration is much improved with minimal erythema and the ulcerations are almost completely closed, now just with some dry scaly skin. NEUROLOGIC: The patient is alert and oriented and appropriate. LABORATORY DATA: Includes white blood cell count 8.1 with a hemoglobin of 13.4. Sodium 140, potassium 4.4, chloride 106, CO2 of 26, BUN 16, creatinine 1.2. CLINICAL IMPRESSION: 1. Cellulitis of bilateral lower extremities, much improved. 2. Venous-type dermatitis, bilateral lower extremities. 3. Ulcerations, right lower extremity, mostly closed. 4. Right inguinal lymphadenopathy. 5. Diabetes mellitus. 6. Morbid obesity. RECOMMENDATIONS: At this point in time, the patient will be treated with topical AmLactin cream to the lower extremities. He does not require other specific dressings at this time. He has had a biopsy of the right groin area. Results will be pending. Recommend continuation of elevation of the extremities when possible. Nutrition to maintain wound healing and improve glycemic control. All questions have been answered. I appreciate being asked to see him in consultation. ��������������������������������������������� <ELECTRONICALLY SIGNED> ���������������������������������������� By: Augie Lai MD ��������������������������������������������� 11/14/18 1528 1713 0911 Augie Lai MD /nt
--- NOTE | 2018-11-14 16:25 | NUR ---
SHIFT SUMMARY: PT PROGRESSING. ALERT/ORIENTED, ABDOMINAL DISCOMFORT CONTROLLED WITH PO PAIN MEDICATION, SR, VIJAY LOWER LEGS WITH SKIN INTACT, SEE ASSESSMENT FOR DETAILS. ROOM AIR, LUNGS CLEAR, TOLERATING DIET, VOIDING PER URINAL. DISCHARGE INSTRUCTIONS AND HAND WRITTEN SCRIPT GIVEN. PT VERBALIZED UNDERSTANDING OF DISCHARGE INSTRUCTIONS. L UPPER ARM MIDLINE IV, DC'D. WELL TOLERATED. PT CALLED FAMILY FOR TRANSPORTION, THEN DISCHARGED TO HOME UPON THEIR ARRIVAL.
[2018-11-14 17:02] VITALS: BP 136/52
--- NOTE | 2018-11-14 17:11 | NUR ---
DISCHARGE NOTE: SW reviewed chart and spoke with attending physician. Pt is medically stable for discharge home today. Pt will follow up with oncology as an outpatient for bx results. Pt provided with safety net clinic info last week. Pt was discharged prior to SW visit. No additional SW needs identified at this time, but is following to assist as needed with discharge planning.
--- NOTE | 2018-11-15 23:05 | PATH ---
[facility] [place] [address] PATHOLOGY RPT PROCEDURE Name: DESTIN WHITFIELD ANABEL Room #: 357-P DIS IN M.R.#: [id number] ������������������ Admission: 11/10/18 ������������������ Date of : 69 Discharge: 11/14/18 Report #: [id number] Path Case #: [id number] Note [facility] Accession Number: [id number] TESTS RESULT FLAG UNITS REF RANGE LAB Clinician Provided Cytology Information No. of containers..01 Other (Miscellaneous) Source: R GROIN LYMPH NODE DIAGNOSIS: R GROIN LYMPH NODE NEGATIVE FOR MALIGNANT EPITHELIAL CELLS. SCANT CELLULARITY. LYMPHOCYTES, HISTIOCYTES AND BLOOD ARE PRESENT, CONSISTENT WITH A LYMPH NODE. THIS INTERPRETATION INCLUDES EVALUATION OF A CELL BLOCK. A POLYMORPHOUS POPULATION OF LYMPHOCYTES WITH RARE HISTIOCYTES IS SEEN. NO MARKEDLY ATYPICAL LYMPHOID CELLS OR METASTATIC CARCINOMA CELLS ARE IDENTIFIED. FLOW CYTOMETRY SHOWS "NO SIGNIFICANT LYMPHOID IMMUNOPHENOTYPIC ABNORMALITIES DETECTED" FROM [facility] (SEE SEPARATE REPORT [id number]). THERE IS NO EVIDENCE OF A LYMPHOPROLIFERATIVE PROCESS IN THE MATERIAL EVALUATED. OF NOTE, THIS IS A SMALL PORTION OF A LARGER LESION AND MAY NOT BE ENTIRELY DEVELOPMENT PROFESSIONAL. CLINICAL AND POTENTIALLY RADIOGRAPIC CORRELATION IS REQUIRED. Pathologist ICD10: 02 R59.9 Signed out by: Markos Mclean MD, Pathologist NPI- [id number] Performed by: 01 Kiki Thurman, Employee Counselor ([facility]) Shiva Lopez Employee Counselor ([facility]) Gross description: 01 43ML, COLORLESS, CLEAR /LCS FLAG LEGEND: L-Low Normal,H-High Normal,LL-Alert Low,HH-Alert High <-Panic Low,>-Panic High,A-Abnormal,AA-Critical Abnormal Performed at: 01 [facility] [address] [place] [id number] Harpreet Leos MD, [address] [address] [place] [address] PATHOLOGY RPT PROCEDURE Name: DESTIN WHITFIELD ANABEL Room #: 357-P DIS IN M.R.#: [id number] ������������������ Admission: 11/10/18 ������������������ Date of : 69 Discharge: 11/14/18 Report #: [id number] Path Case #: [id number] Delta Dillon MD, Specimen Comment: [id number] Performed at: 01 [facility] [address] [place] [address] [address], [place], [place] [id number] MD Harpreet Leos MD Phone: [phone]
== END 2018-11-14 16:30 | disposition home or self-care (01) | DRG 854 ==
LOC: ER 13:54 → EROBS 18:15 → ER 18:16 → 3W 18:55 → ENTRNSPT 11-14 16:17 → 3W 11-14 16:30
PROVIDERS: Internal Medicine Hematology & Oncology; Physician Assistant; ADMIT Hospitalist
PROC: 05HY33Z Insertion of Infusion Device into Upper Vein, Percutaneous Approach (ICD-10-PCS; principal; 2018-11-12)
PROC: 07BH3ZX Excision of Right Inguinal Lymphatic, Percutaneous Approach, Diagnostic (ICD-10-PCS; 2018-11-13)
DX: A41.9 Sepsis, unspecified organism (principal); Z68.41 Body mass index [BMI] 40.0-44.9, adult; N17.9 Acute kidney failure, unspecified; L03.115 Cellulitis of right lower limb; L03.116 Cellulitis of left lower limb; L97.819 Non-pressure chronic ulcer of other part of right lower leg with unspecified severity; E44.0 Moderate protein-calorie malnutrition; I10 Essential (primary) hypertension; R65.20 Severe sepsis without septic shock; E11.9 Type 2 diabetes mellitus without complications; M17.0 Bilateral primary osteoarthritis of knee; K59.00 Constipation, unspecified; F41.9 Anxiety disorder, unspecified; I87.2 Venous insufficiency (chronic) (peripheral); E66.01 Morbid (severe) obesity due to excess calories; R59.0 Localized enlarged lymph nodes; F17.210 Nicotine dependence, cigarettes, uncomplicated; Z87.19 Personal history of other diseases of the digestive system; Z79.84 Long term (current) use of oral hypoglycemic drugs; Z79.899 Other long term (current) drug therapy; Z88.8 Allergy status to other drugs, medicaments and biological substances; Z83.3 Family history of diabetes mellitus
CPT/HCPCS: 10080; 10879; 27000

== ENCOUNTER 2018-12-22 16:04 | Inpatient (IN) | payer OTHER ==
[~2018-12-22] VITALS: Ht 177.8 cm; Wt 142.0 kg
[~2018-12-22 16:04] MED LIST changes: +AMMONIUM LACTA226 GM TOP; +MIRALAX17 GM PO
[2018-12-22 16:15] VITALS: BP 139/108
[2018-12-22 17:41] LABS: ABSOLUTE NEUTROPHILS 11.1 thou/uL (1.4-8.2); BASOPHILS 0.7 % (0.0-2.0); EOSINOPHILS 0.2 % (0.0-3.0); HEMATOCRIT 46.9 % (42.0-52.0); HEMOGLOBIN 15.7 gm/dL (14.0-18.0); LYMPHOCYTES 13.9 % (24.0-44.0); MCH 29.3 pg (26.0-34.0); MCHC 33.4 g/dL (28.0-37.0); MCV 87.6 fL (80.0-100.0); MONOCYTES 8.6 % (1.0-8.0); POLYS 76.6 % (36.0-66.0); RBC 5.36 mil/uL (4.50-6.00); RDW 15.7 % (10.5-14.5); WBC 15.7 thou/uL (4.0-11.0)
[2018-12-22 17:56] LABS: ANION GAP 14 mmol/L (7-16); BUN 28 mg/dL (7-18); CALCIUM 8.9 mg/dL (8.5-10.1); CHLORIDE 102 mmol/L (98-107); CO2 23 mmol/L (21-32); GLUCOSE 153 mg/dL (74-106); POTASSIUM 3.8 mmol/L (3.5-5.1); SODIUM 139 mmol/L (136-145)
[2018-12-22 18:00] LABS: DIRECT BILIRUBIN < 0.1 mg/dL (<0.1-0.3); LIPASE 97 U/L (73-393); PLATELET COUNT 234 thou/uL (150-400); SGOT 51 U/L (15-37); SGPT 91 U/L (30-65); TOTAL BILIRUBIN 0.2 mg/dL (<0.1-1.0)
[2018-12-22 21:03] LABS: URINE BILIRUBIN 1+ (Negative); URINE BLOOD NEGATIVE (Negative); URINE CLARITY SL CLOUDY; URINE COLOR YELLOW; URINE GLUCOSE-RANDOM* NEGATIVE (Negative); URINE KETONES NEGATIVE (Negative); URINE LEUKOCYTES-REFLEX NEGATIVE (Negative); URINE NITRITE-REFLEX NEGATIVE (Negative); URINE PROTEIN (DIPSTICK) 2+ (Negative); URINE SPECIFIC GRAVITY >= 1.030 (1.005-1.035); URINE UROBILINOGEN 0.2 E.U./dl (0.2-1.0)
[2018-12-22 21:10] LABS: ICTOTEST (BILI CONFIRMATORY) Positive (Negative)
[2018-12-22 21:23] LABS: AMORPHOUS URATES Moderate /LPF (None Seen); BACTERIA-REFLEX None Seen /HPF (None Seen); FINE GRANULAR CASTS 0-3 Few /LPF (None Seen); HYALINE CASTS 4-10 Moderate /LPF (None Seen); MUCUS 0-3 Light strn/LPF (None Seen); SQUAMOUS 4-10 Moderate /LPF (0-3); URIC ACID CRYSTALS >10 Many /LPF (None Seen); URINE RBC None Seen /HPF (0-2); URINE WBC-REFLEX None Seen /HPF (0-5)
[2018-12-23 06:36] LABS: MCHC 33.1 g/dL (28.0-37.0); MCV 87.6 fL (80.0-100.0); RBC 4.67 mil/uL (4.50-6.00); RDW 15.7 % (10.5-14.5)
[2018-12-23 06:40] LABS: HEMOGLOBIN 13.5 gm/dL (14.0-18.0)
[2018-12-23 06:47] LABS: CALCIUM 7.7 mg/dL (8.5-10.1); POTASSIUM 3.9 mmol/L (3.5-5.1); TOTAL BILIRUBIN 0.3 mg/dL (<0.1-1.0); TOTAL PROTEIN 7.1 g/dL (6.4-8.2)
[2018-12-23 06:49] LABS: CHOLESTEROL 175 mg/dL (<200); CREATININE 1.9 mg/dL (0.7-1.3); HDL CHOLESTEROL 25 mg/dL (>40); LDL CHOLESTEROL 121 mg/dL (<100); TRIGLYCERIDE 147 mg/dL (<150); VLDL 29 mg/dL (<40)
[2018-12-23 09:54] VITALS: BP 140/76
[2018-12-23 12:59] VITALS: BP 128/67
[2018-12-23 13:28] VITALS: BP 155/83
--- NOTE | 2018-12-23 16:42 | NUR ---
Pt came to unit from ED approx 1315. A&ox4. Denies pain. Admission completed. IVF infusing. ordered UDS. Waiting to be collected when patient voids next. Ambulates with steady gait. Comes from home. Call light within reach. Will continue to monitor.
[2018-12-23 17:57] LABS: AMP/METHAMP POSITIVE (Negative); BARBITURATES Negative (Negative); BENZODIAZEPINES Negative (Negative); COCAINE Negative (Negative); METHADONE Negative (Negative); OPIATES Negative (Negative); PCP Negative (Negative)
[2018-12-23 20:45] VITALS: BP 141/71
[2018-12-24 03:11] LABS: GLYCOHEMOGLOBIN (HGB A1C) 6.1 % (4.8-5.6)
[2018-12-24 03:40] VITALS: BP 144/86
--- NOTE | 2018-12-24 07:48 | NUR ---
SHIFT SUMMARY: PT IS ALERT AND ORINTED. UP AD BABS. CONTINUES ON IV FLUIDS. VOIDING LOTS. AFEBRILE. SOME EDEMA AND ERYTHEMA TO BLE.
[2018-12-24 08:29] VITALS: BP 140/82
--- NOTE | 2018-12-24 10:58 | NUR ---
7am-1pm Received awake on bed. Due medications given as prescribed. A+Ox4. On room air. On blood sugar monitoring- taken and recorded accordingly, with sliding scale insulin prescribed. With NS at 125cc/hr infusing well at R FA. Pt up ad estephania. Assisted in ADLs. With blood works ordered for today, laboratory staff called and mentioned that they are having a hard time taking bloods from pt and pt mentioned he doesn't want to be stuck repeatedly, called IV nurse to ask help drawing bloods, a/w call back, if still unable to get bloods will ask doctor to order midline/PICC line instead. Vital signs stabe. No complaints of pain.
[2018-12-24 12:32] LABS: CALCIUM 8.3 mg/dL (8.5-10.1); CREATININE 1.2 mg/dL (0.7-1.3); POTASSIUM 4.3 mmol/L (3.5-5.1)
--- NOTE | 2018-12-24 12:38 | NUR ---
NOTIFIED TO DRAW LABS FOR THIS PATIENT. ON EACH ADMIT HE IS STUCK MULTIPLE TIMES FOR PIV LINES AND LABS. HE IS REQUESTING A MIDLINE. AGREE TO MIDLINE PLACEMENT. A #4F POWER MIDLINE WAS PLACED PER POLICY. LINE WAS TRIMMED TO 14CM AND ADVANCED WITHOUT DIFFICULTY. BLOOD DRAWN AND LINE SECURED
[2018-12-24] MEDS ORDERED: NORVASC10 MG PO (14:15)
[2018-12-24 14:22] VITALS: BP 140/82
--- NOTE | 2018-12-24 14:59 | NUR ---
Pt discharged to home.
--- NOTE | 2018-12-26 07:43 | EKG ---
[address] [place] [address] ELECTROCARDIOGRAM REPORT Name: DSETIN WHITFIELD ANABEL Room #: 423-1 [facility] IN M.R.#: [id number] Admission: 12/22/18 Attend Phys: Pieter Nice Discharge: 12/24/18 Date of : 69 Report #: [id number] THIS REPORT FOR: //name// [facility] ED Test Date: 2018-12-22 Test Time: 16:20:34 Pat Name: DESTIN WHITFIELD Department: Room: [facility] Gender: M Life Agent: NOEL : [id number] Requested By: Chin Holly Order Number: [id number] MD: Devonte Camacho Measurements Intervals [place] Rate: 117 P: 31 DE: 142 QRS: 60 QRSD: 91 T: 62 QT: 333 QTc: 465 Interpretive Statements Sinus tachycardia Otherwise normal tracing Compared to ECG 11/01/2018 21:45:25 No significant changes Electronically Signed On 12-26-2018 7:42:38 CDT by Devonte Camacho [email or web address] <ELECTRONICALLY SIGNED> By: Devonte Camacho MD, [facility] 12/26/18 0742 19 19 Devonte Camacho MD, [facility] /EPI
== END 2018-12-24 15:00 | disposition home or self-care (01) | DRG 683 ==
LOC: ER 16:04 → EROBS 21:25 → 4E 12-23 13:13
PROVIDERS: Hospitalist; Nurse Practitioner; Nurse Practitioner Family; ADMIT Hospitalist
DX: N17.9 Acute kidney failure, unspecified (principal); E87.2 Acidosis; I50.32 Chronic diastolic (congestive) heart failure; Z68.41 Body mass index [BMI] 40.0-44.9, adult; R10.9 Unspecified abdominal pain; E66.01 Morbid (severe) obesity due to excess calories; I11.0 Hypertensive heart disease with heart failure; E11.9 Type 2 diabetes mellitus without complications; M19.90 Unspecified osteoarthritis, unspecified site; F17.210 Nicotine dependence, cigarettes, uncomplicated; Z90.49 Acquired absence of other specified parts of digestive tract; Z79.84 Long term (current) use of oral hypoglycemic drugs; Z88.6 Allergy status to analgesic agent; Z87.11 Personal history of peptic ulcer disease; Z83.3 Family history of diabetes mellitus; Z71.6 Tobacco abuse counseling; Z91.19 Patient's noncompliance with other medical treatment and regimen
CPT/HCPCS: 10084; 27000

== ENCOUNTER 2019-04-30 12:40 | Inpatient (IN) | payer OTHER ==
[~2019-04-30] VITALS: Ht 177.8 cm; Wt 150.1 kg
[~2019-04-30 12:40] MED LIST changes: +NORVASC10 MG PO
[2019-04-30 12:42] VITALS: BP 160/113
[2019-04-30] MEDS ORDERED: METFORMIN HCL500 M3 PO (13:12)
[2019-04-30 13:34] LABS: ABSOLUTE NEUTROPHILS 6.3 thou/uL (1.4-8.2); BASOPHILS 0.8 % (0.0-2.0); EOSINOPHILS 1.3 % (0.0-3.0); HEMATOCRIT 45.8 % (42.0-52.0); HEMOGLOBIN 14.6 gm/dL (14.0-18.0); LYMPHOCYTES 20.4 % (24.0-44.0); MCH 27.9 pg (26.0-34.0); MCHC 31.9 g/dL (28.0-37.0); MCV 87.6 fL (80.0-100.0); MONOCYTES 9.4 % (1.0-8.0); PLATELET COUNT 244 thou/uL (150-400); POLYS 68.1 % (36.0-66.0); RBC 5.23 mil/uL (4.50-6.00); RDW 14.8 % (10.5-14.5); WBC 9.3 thou/uL (4.0-11.0)
[2019-04-30 13:37] LABS: CALCIUM 8.9 mg/dL (8.5-10.1); CREATININE 1.1 mg/dL (0.7-1.3); POTASSIUM 4.3 mmol/L (3.5-5.1)
[2019-04-30 13:44] LABS: ALBUMIN 3.4 g/dL (3.4-5.0); TOTAL BILIRUBIN 0.3 mg/dL (<0.1-1.0)
[2019-04-30 16:44] VITALS: BP 154/86
--- NOTE | 2019-04-30 17:36 | NUR ---
1455- PT. REQUESTS TO SEE NURSE BECAUSE HE IS ITCHING. PT. HAS DIFUSE ERRYTHEMA TO THE UPPER TORSO AND FACE. CONTACTED [employer]ICATION[employer] PROGRAMMER FOR FURTHER ORDERS AND PROVIDED BENADRYL ORDERED. SYMPTOMS IMPROVED WITHIN 20 MINUTES.
--- NOTE | 2019-04-30 19:52 | NUR ---
ED NURSE CALLED TO GIVE REPORT, WAS TOLD BY JORDI "I JUST FOUND OUT ABOUT IT LET ME CALL YOU BACK" ED NURSE ADVISED HER THAT WE WILL NEED TO MOVE THE PT QUICKLY, NURSE JOSE
[2019-04-30 20:30] VITALS: BP 162/101
--- NOTE | 2019-05-01 05:12 | NUR ---
admit pt admitted to room 457 from ed being admitted with right lower extremety cellulitis. admission completed. iv antibiotics administered as ordered. taking hydrocodone for pain with effect. wounds cleansed with normal saline xeroform gauze applied and wrapped with kerlix, photos taken per protocal see chart.
[2019-05-01 05:18] LABS: CALCIUM 8.4 mg/dL (8.5-10.1); CREATININE 1.1 mg/dL (0.7-1.3); POTASSIUM 4.1 mmol/L (3.5-5.1)
[2019-05-01 05:29] LABS: HEMOGLOBIN 13.9 gm/dL (14.0-18.0); MCH 28.5 pg (26.0-34.0); MCHC 32.5 g/dL (28.0-37.0); MCV 87.8 fL (80.0-100.0); RBC 4.89 mil/uL (4.50-6.00); RDW 14.7 % (10.5-14.5); WBC 6.9 thou/uL (4.0-11.0)
[2019-05-01 07:27] VITALS: BP 132/73
--- NOTE | 2019-05-01 10:24 | NUR ---
Nutrition: pt admitted with right lower extremity cellulitis with open wounds. Wound care consult. Familiar with pt from prior admits. Stable wts since summer. BMI > 40, extreme class 3 obesity. Pt has refused dietary education and past for weight loss/DM. Continues to deny needs. Did review protein needs with pt and will start ensure max daily. BG 86-96 and A1C 6.1. Typical appetite excellent. Low nutrition risk with interventions in place.
[2019-05-01 15:51] VITALS: BP 162/88
--- NOTE | 2019-05-01 16:02 | NUR ---
PT ADMITTED RELATED TO Right Lower Extremety Cellulitis w/ open wounds. CM REVIEWED CHART AND SPOKE WITH CARE TEAM. CM MET WITH PT AT BEDSIDE THIS DAY. PT IS A&O X4. CM ROLE INTRODCUED. PT INDICATED HE LIVES IN A HOUSE WITH RONIT MATIAS AND HER FATHER. PT INDICATED 3 STEPS TO ENTER AND NONE INSIDE. 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 PT INDICATED NO HH OR OP THERAPY HX. PT INDICATED HE HAS A PCP AT [facility]. PT INDICATED HE PLANS TO RETURN HOME ONCE MEDICALLY STABLE. CM TO FOLLOW INDICATED WITH DC PLANNING.
--- NOTE | 2019-05-01 16:02 | NUR ---
Assumed pt care at 7am.Pt in bed sleeping on and off.Assessment completed.vss. Pt tolerated med and diet.Pain med give x2 this shift for rt leg pain.Dr Lai here,order noted.Rolo change done to rt leg as ordered.Will continue to monitor.
[2019-05-01 19:35] VITALS: BP 150/75
--- NOTE | 2019-05-02 01:03 | NUR ---
ASSUMED PT CARE AT 1900. PT REQUESTED PAIN MEDS SAYING AM NURSE TOLD HIM HE WAS DUE AT 1930, EMAR REFLECTED NOT DUE UNTIL 2199. PT VERY UPSET, REFUSED RREST OF MEDS. ALSO REFUSED MY ASSESSMENT. LAB UP TO DRAW BLOOD, TOLD HER HE WAS FRUSTRATED WITH THE DAY HE HAD. SPOKE WITH PT, AGREED TO ALLOW ME TO GIVE HIM ORDERED VANCO. CCALLED LATER IN SHIFT FOR PAIN MEDS. PT SLEEPING HEAVILY MOST THE SHIFT. WILL CONTINUE TO MONITOR.
[2019-05-02 04:32] VITALS: BP 143/98
[2019-05-02 08:32] VITALS: BP 153/81
[2019-05-02] MEDS ORDERED: BACTRIM DS TAB1 EACH PO (12:09)
--- NOTE | 2019-05-02 13:57 | NUR ---
CARE TEAM INDICATED THAT PT IS MEDICALLY STABLE TO DISCHARGE HOME THIS DAY. PT IS TO DC ON PO ABX. CARE TEAM INDICATED THAT PT IS TO FOLLOW UP ON AN OP BASIS FOR WOUND CARE. NO OTHER CM INTERVENTION INDICATED CASE CLOSED.
[2019-05-02 14:17] VITALS: BP 153/81
[2019-05-02 15:10] VITALS: BP 148/94
--- NOTE | 2019-05-02 15:38 | NUR ---
DISCHARGE PLANNING. DISCHARGE PLAN TO HOME WITH HOME HEALTH. PATIENT REFERRAL FAXED TO [facility] PER REQUEST. CALL PLACED TO [facility], SPOKE WITH GONZALO. NOTIFIED OF REFERRAL. FOLLOWING.
--- NOTE | 2019-05-02 16:58 | NUR ---
WOUND CONSULT; ROUNDING WITH DR PERRY. THE RIGHT LE WAS ASSESSED AND WAS VERY PAINFUL. 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 RECOMMENDATION; CONTINUE CURRENT TREATMENT
--- NOTE | 2019-05-02 18:22 | NUR ---
PT ALERT AND ORIENTED TIMES FOUR. VSS, PT C/O PAIN PRN PAIN MEDICATIONS GIVEN WITH GOOD RELEIF. PT UP WALKING AROUND THE ROOM WITH STEADY GAIT. PT TOLERATES MEDS AND MEALS. PT PROGRESSING TOWRADS POC GOALS.
--- NOTE | 2019-05-02 18:42 | HC ---
[facility] [place] [address] CONSULTATION Name: DESTIN WHITFIELD ANABEL Room #: 457-P [facility] IN ..#: [id number] Admission: 04/30/19 Attend Phys: Vin Mccain MD Discharge: 05/02/19 Date of : 69 Report #: [id number] THIS REPORT FOR: //name// CC: Vin Mccain [facility] physician/PCP NO PCP DATE OF SERVICE: 05/01/2019 CHIEF COMPLAINT: Cellulitis and venous ulcerations to the right leg. HISTORY OF PRESENT ILLNESS: This is a 54-year-old male patient with whom I am familiar from previous hospitalizations. He developed some swelling and drainage from his right leg about a week ago. It has become progressively severe and he presented to the Emergency Department and has been admitted. He has been started on intravenous vancomycin. He states that he is still having some pain and drainage, but overall feels pretty well. He denies any current fever or chills. PAST MEDICAL HISTORY: Positive for diabetes mellitus, morbid obesity, hypertension, ongoing venous dermatitis of both lower extremities, history of duodenal ulcer, acute kidney injury, history of diastolic heart failure. SOCIAL HISTORY: The patient denies alcohol use. He has been smoking cigarettes 1 pack per day for 39 years and currently smokes daily. No recreational drug use. FAMILY HISTORY: Noncontributory and negative for diabetes in his father. Positive for diabetes in his mother. REVIEW OF SYSTEMS: CONSTITUTIONAL: The patient denies fever, chills or weight loss. NEUROLOGICAL: The patient denies focal weakness, numbness or tingling. EYES: The patient denies visual changes, redness, or drainage. ENT: The patient denies earache, nasal drainage, sore throat. CARDIOVASCULAR: The patient denies chest pain or palpitations or diaphoresis. PULMONARY: The patient denies cough or shortness of breath. GASTROINTESTINAL: Denies nausea, vomiting, diarrhea or abdominal pain. ORTHOPEDIC: The patient complains of pain, swelling, drainage from the right lower extremity. SKIN: The patient notes the ulcerations of his right leg. Denies other rashes. PSYCHIATRIC: The patient denies anxiety, irritability, depression. ENDOCRINE: The patient denies heat or cold intolerance, polydipsia, or polyphagia. Other systems in a 14-point review of systems are negative. [address] [address] CONSULTATION Name: DESTIN WHITFIELD ANABEL Room #: 457-P [facility].#: [id number] Admission: 04/30/19 Attend Phys: Vin Mccain MD Discharge: 05/02/19 Date of : 69 Report #: [id number] PHYSICAL EXAMINATION: VITAL SIGNS: At this time include temperature 36.3, pulse 97, respiratory rate 18, blood pressure 162/88. GENERAL: This is a well-developed, well-nourished patient who appears to be in minimal distress. HEENT: Head normocephalic. Nose and throat are clear. NECK: Supple. LUNGS: Clear. HEART: ____. ABDOMEN: Bowel sounds present. EXTREMITIES: Lower extremities demonstrate 2-3+ edema bilaterally. He has chronic hyperpigmentation and hemosiderin staining to both lower extremities consistent with chronic venous stasis dermatitis. He has 2 areas of open ulceration on the right lower leg. Both have some odor and some yellowish drainage. The wound bases are relatively clean with some granulation tissue and a little bit of slough around the edges. The leg itself is cellulitic and warm and red to palpation proximal to the ulcerations. NEUROLOGIC: The patient is alert and oriented and appropriate. Moving all 4 extremities spontaneously. LABORATORY DATA: White blood cell count on admission was 9.3, currently 6.9; hemoglobin 13.9. Sodium 136, potassium 4.1, chloride 102, CO2 of 29, BUN 16, creatinine 1.1, calcium is 8.4, albumin is 3.4. CLINICAL IMPRESSION: 1. Venous ulcerations to the right lower extremity. 2. Cellulitis and wound infection, right lower extremity. 3. Venous stasis dermatitis, bilateral lower extremities. 4. Diabetes mellitus. 5. Morbid obesity. RECOMMENDATIONS: At this point in time, empiric antibiotic therapy would be appropriate, pending culture and sensitivity. We will recommend topical gentamicin ointment, Xeroform gauze, ABD and then Kerlix and Jose Roberto. Recommend AmLactin lotion to the dry skin of both legs. Elevation of the lower extremities would be appropriate as well. We will begin with gentle compression. As the cellulitis resolves, we may become more aggressive to control edema and help with wound healing. I appreciate being asked to see the patient in consultation. <ELECTRONICALLY SIGNED> By: Augie Lai MD 05/02/19 1842 1600 [id number] Augie Lai MD /nt
== END 2019-05-02 18:00 | disposition home or self-care (01) | DRG 603 ==
LOC: ER 12:40 → EROBS 16:32 → 4W 16:32
PROVIDERS: Physician Assistant; ADMIT Hospitalist
DX: L03.115 Cellulitis of right lower limb (principal); I50.30 Unspecified diastolic (congestive) heart failure; L97.919 Non-pressure chronic ulcer of unspecified part of right lower leg with unspecified severity; Z68.42 Body mass index [BMI] 45.0-49.9, adult; E11.9 Type 2 diabetes mellitus without complications; M19.90 Unspecified osteoarthritis, unspecified site; I11.0 Hypertensive heart disease with heart failure; E66.01 Morbid (severe) obesity due to excess calories; F17.210 Nicotine dependence, cigarettes, uncomplicated; I87.2 Venous insufficiency (chronic) (peripheral); Z23 Encounter for immunization; Z79.4 Long term (current) use of insulin; Z87.11 Personal history of peptic ulcer disease; Z87.81 Personal history of (healed) traumatic fracture; Z88.6 Allergy status to analgesic agent
CPT/HCPCS: 10040

== ENCOUNTER 2019-05-07 12:44 | Emergency (ER) | payer OTHER ==
[~2019-05-07] VITALS: Ht 177.8 cm; Wt 142.9 kg
[~2019-05-07 12:44] MED LIST changes: +BACTRIM DS TAB1 EACH PO; +METFORMIN HCL500 M3 PO
[2019-05-07] MEDS ORDERED: CLEOCIN HCL150 MG PO (15:00)
[2019-05-07] MEDS ORDERED: BENADRYL25 MG PO (15:00)
[2019-05-07 15:06] VITALS: BP 158/92
== END 2019-05-07 15:16 | disposition home or self-care (01) ==
LOC: ER 12:44
DX: L27.0 Generalized skin eruption due to drugs and medicaments taken internally (principal); T37.0X5A Adverse effect of sulfonamides, initial encounter; L03.115 Cellulitis of right lower limb; I10 Essential (primary) hypertension; E11.9 Type 2 diabetes mellitus without complications; M19.90 Unspecified osteoarthritis, unspecified site; F17.210 Nicotine dependence, cigarettes, uncomplicated; Z88.6 Allergy status to analgesic agent; Y92.89 Other specified places as the place of occurrence of the external cause

== ENCOUNTER 2019-05-17 02:38 | Emergency (ER) | payer OTHER ==
[~2019-05-17] VITALS: Ht 177.8 cm; Wt 158.8 kg
[~2019-05-17 02:38] MED LIST changes: +BENADRYL25 MG PO
[2019-05-17 04:09] LABS: BASOPHILS 0.9 % (0.0-2.0); HEMATOCRIT 45.1 % (42.0-52.0); HEMOGLOBIN 14.6 gm/dL (14.0-18.0); LYMPHOCYTES 23.4 % (24.0-44.0); MCH 28.1 pg (26.0-34.0); MCHC 32.4 g/dL (28.0-37.0); MCV 86.7 fL (80.0-100.0); PLATELET COUNT 247 thou/uL (150-400); POLYS 61.7 % (36.0-66.0); WBC 9.7 thou/uL (4.0-11.0)
[2019-05-17 04:18] LABS: ANION GAP 11 mmol/L (7-16); BUN 16 mg/dL (7-18); CHLORIDE 104 mmol/L (98-107); CO2 26 mmol/L (21-32); CREATININE 1.1 mg/dL (0.7-1.3); GLUCOSE 102 mg/dL (74-106); POTASSIUM 4.1 mmol/L (3.5-5.1); SODIUM 141 mmol/L (136-145)
[2019-05-17 04:19] LABS: APTT 29.6 Seconds (24.5-32.8)
[2019-05-17 04:24] LABS: ALBUMIN 3.4 g/dL (3.4-5.0); DIRECT BILIRUBIN < 0.1 mg/dL (<0.1-0.2); SGOT 24 U/L (15-37); SGPT 46 U/L (30-65); TOTAL BILIRUBIN 0.3 mg/dL (<0.1-1.0)
[2019-05-17 05:40] VITALS: BP 165/93
== END 2019-05-17 05:25 | disposition home or self-care (01) ==
LOC: ER 02:38
PROVIDERS: Emergency Medicine
DX: L25.1 Unspecified contact dermatitis due to drugs in contact with skin (principal); T36.8X5A Adverse effect of other systemic antibiotics, initial encounter; Y92.89 Other specified places as the place of occurrence of the external cause

== ENCOUNTER 2019-05-24 02:55 | Inpatient (IN) | payer OTHER ==
[~2019-05-24] VITALS: Ht 177.8 cm; Wt 141.5 kg
[2019-05-24 02:57] VITALS: BP 194/145
[2019-05-24 03:42] LABS: ABSOLUTE NEUTROPHILS 7.8 thou/uL (1.4-8.2); BASOPHILS 0.6 % (0.0-2.0); EOSINOPHILS 1.2 % (0.0-3.0); HEMATOCRIT 46.5 % (42.0-52.0); LYMPHOCYTES 26.2 % (24.0-44.0); MCHC 32.2 g/dL (28.0-37.0); MCV 86.9 fL (80.0-100.0); MONOCYTES 11.4 % (1.0-8.0); PLATELET COUNT 292 thou/uL (150-400); POLYS 60.6 % (36.0-66.0); RBC 5.36 mil/uL (4.50-6.00); RDW 15.4 % (10.5-14.5); WBC 12.9 thou/uL (4.0-11.0)
[2019-05-24 03:44] LABS: CALCIUM 8.9 mg/dL (8.5-10.1); CREATININE 1.9 mg/dL (0.7-1.3); POTASSIUM 3.7 mmol/L (3.5-5.1)
[2019-05-24 04:52] LABS: URINE BILIRUBIN NEGATIVE (Negative); URINE BLOOD TRACE (Negative); URINE CLARITY CLEAR; URINE COLOR YELLOW; URINE GLUCOSE-RANDOM* NEGATIVE (Negative); URINE KETONES NEGATIVE (Negative); URINE LEUKOCYTES-REFLEX NEGATIVE (Negative); URINE NITRITE-REFLEX NEGATIVE (Negative); URINE PROTEIN (DIPSTICK) 1+ (Negative); URINE SPECIFIC GRAVITY >= 1.030 (1.005-1.035); URINE UROBILINOGEN 0.2 E.U./dl (0.2-1.0)
[2019-05-24 05:35] LABS: BACTERIA-REFLEX 1-9 Few /HPF (None Seen); CRYSTALS None Seen /LPF (None Seen); HYALINE CASTS 4-10 Moderate /LPF (None Seen); MUCUS 4-6 Moderate strn/LPF (None Seen); SQUAMOUS >10 Many /LPF (0-3); URINE RBC 3-10 Few /HPF (0-2); URINE WBC-REFLEX 0-5 Rare /HPF (0-5)
[2019-05-24 06:41] VITALS: BP 134/71
[2019-05-24 06:57] VITALS: BP 134/71
[2019-05-24 08:05] VITALS: BP 151/87
[2019-05-24] MEDS ORDERED: DOXYCYCLINE 10100 M2 PO (10:48)
--- NOTE | 2019-05-24 15:07 | NUR ---
PT ADMITTED AT 0730. A&OX4. PT IN MODERATE PAIN WHICH IS BEING CONTROLLED BY PAIN MEDICATION. PT IS INDEPENDENT IN THE ROOM. ADMISSION COMPLEETED. IV PATENT WITH NO REDNESS OR EDEMA. NO SCD DUE TO LOWER EXTREMITY CELLULITIS. PT BODY IS COVERED IN WHAT LOOKS LIKE AN ALLERGIC REACTION THAT DOES NOT GO AWAY WHEN PRESSURE IS APPLIED. BILATERAL LOWER EXTREMITIES ARE VERY DRY AND LOTION WILL BE APPLIED HOURLY PER DR. MEHTA. PICTURES OF LEGS TAKEN. PT IS ACHS WITH NO COVEREGE NEEDED.
--- NOTE | 2019-05-24 15:24 | NUR ---
PT ADMITTED RELATED TO CELLULITIS. CM REVIEWED CHART AND SPOKE WITH CARE TEAM. CM MET WITH PT AT BEDSIDE THIS DAY. PT IS A&O X4. CM ROLE INTRODUCED. PT INDICATED HE LIVES IN A HOUSE WITH HIS FIANCE AND HER GRANDFATHER. PT INDICATED THERE ARE 3 STEPS TO ENTER AND NONE INSIDE. 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 PT'S PCP IS DR. SESAR WOODWARD. PT INDICATED HE PLANS TO RETURN HOME ONCE MEDICALLY STABLE. PT RECEPTIVE TO HH IF RECOMMENDED UPON DC. CM TO FOLLOW INDICATED WITH DC PLANNING.
[2019-05-24 16:19] VITALS: BP 143/70
[2019-05-24 18:15] LABS: SMEAR FOR EOSINOPHILS No Eosinophils Seen
[2019-05-24 19:32] VITALS: BP 125/66
--- NOTE | 2019-05-25 02:05 | NUR ---
PT DENIED PAIN SO FAR.PT HAS DRYNESS ON BLE,CREAM APPLIED TO LEGS.PT CONT TO HAVE RED SPOTS ALL OVER HIS BODY,PT STATED THAT IT IS LOOKING BETTER.NO BM THIS SHIFT.PT RETING ON HIS BED AT THIS TIME.REPORT TO RUBIO BOWEN WHO TOOK OVER CARE OF PT AT 11PM.
[2019-05-25 03:14] VITALS: BP 128/70
--- NOTE | 2019-05-25 04:17 | NUR ---
ASSUMED PT CARE AROUND 2330. SLEEPING IN BED. NO S/S ACUTE DISTRESS NOTED OR REPORTED AT THIS TIME. WILL CONT TO MONITOR FOR ANY CHANGES IN CONDITION.
[2019-05-25 08:21] VITALS: BP 148/78
[2019-05-25 08:47] LABS: HEMATOCRIT 43.3 % (42.0-52.0); HEMOGLOBIN 13.9 gm/dL (14.0-18.0); MCH 27.8 pg (26.0-34.0); MCHC 32.1 g/dL (28.0-37.0); MCV 86.7 fL (80.0-100.0); RBC 4.99 mil/uL (4.50-6.00); RDW 15.2 % (10.5-14.5); WBC 14.1 thou/uL (4.0-11.0)
[2019-05-25 08:55] LABS: CALCIUM 8.5 mg/dL (8.5-10.1); CREATININE 1.2 mg/dL (0.7-1.3); POTASSIUM 4.2 mmol/L (3.5-5.1)
[2019-05-25] MEDS ORDERED: RAYOS5 MG PO (09:11)
[2019-05-25] MEDS ORDERED: HYDROCODON-ACE1 EAC7 PO (09:11)
[2019-05-25 09:56] VITALS: BP 148/78
--- NOTE | 2019-05-25 10:35 | NUR ---
PT CARE ASSUMED AT 0700. A&Ox4. AWAITING DERMATOLOGY CONSULTATION. PT IS SLEEPING ALL DAY AND ONLY GETTING UP OUT OF THE BED WHEN HAVING TO USE THE BATHROOM AND WHEN FOOD IS BEING BROUGHT TO THE ROOM. ACHS WITH NO COVERAGE NEEDED THIS AM. PT IV IS PATENT WITH NO REDNESS OR SWELLING. CALL LIGHT IN REACH. LOTION APPLIED TO PT LEGS AND EDUCATED THE PT ON THE NEED OF HIM DOING THIS FREQUENTLY FOR THE DRYNESS ON HIS LEGS.
[2019-05-25 14:40] VITALS: BP 148/78
--- NOTE | 2019-05-25 15:09 | NUR ---
CARE TEAM INDICATED THAT PT IS MEDICALLY STABLE TO [place] WITH HH SERVICES THIS DAY. ORDERS FAXED TO [employer] [facility]. PT IS AWARE AND AGREEABLE. PT WAS PROVIDED WITH A CAB VOUCHER FOR [facility]. NO OTHER CM INTERVENTION INDICATED. CASE CLOSED.
== END 2019-05-25 14:58 | disposition home or self-care (01) | DRG 607 ==
LOC: ER 02:55 → EROBS 04:35 → 4S 04:35 → ENTRNSPT 05-25 14:57 → 4S 05-25 14:58
PROVIDERS: Hospitalist; Nurse Practitioner Family; Student in an Organized Health Care Education/Training Program; ADMIT Hospitalist
DX: L27.0 Generalized skin eruption due to drugs and medicaments taken internally (principal); L97.819 Non-pressure chronic ulcer of other part of right lower leg with unspecified severity; I50.32 Chronic diastolic (congestive) heart failure; N17.9 Acute kidney failure, unspecified; Z68.41 Body mass index [BMI] 40.0-44.9, adult; I83.018 Varicose veins of right lower extremity with ulcer other part of lower leg; L30.8 Other specified dermatitis; E11.9 Type 2 diabetes mellitus without complications; I10 Essential (primary) hypertension; M19.90 Unspecified osteoarthritis, unspecified site; I11.0 Hypertensive heart disease with heart failure; F17.210 Nicotine dependence, cigarettes, uncomplicated; E66.01 Morbid (severe) obesity due to excess calories; T36.8X5A Adverse effect of other systemic antibiotics, initial encounter; Z91.19 Patient's noncompliance with other medical treatment and regimen; Z88.8 Allergy status to other drugs, medicaments and biological substances; Z87.11 Personal history of peptic ulcer disease; Z71.6 Tobacco abuse counseling; Y92.89 Other specified places as the place of occurrence of the external cause
CPT/HCPCS: 10102

== ENCOUNTER 2019-11-22 21:05 | Emergency (ER) | payer OTHER ==
[~2019-11-22] VITALS: Ht 182.9 cm; Wt 127.0 kg
[~2019-11-22 21:05] MED LIST changes: +DOXYCYCLINE 10100 M2 PO; +HYDROCODON-ACE1 EAC7 PO; +RAYOS5 MG PO
[2019-11-22 22:11] LABS: BE(vivo) 1.8 mmol/L (-2 to +3); HCO3 23.3 mmol/L (22.0-26.0); PCO2 29.3 mmHg (35.0-45.0); PO2 71.1 mmHg (80.0-100.0); pH 7.519 (7.360-7.450); sO2 95.9 % (92.0-98.0)
[2019-11-22 23:29] LABS: ABSOLUTE NEUTROPHILS 12.7 thou/uL (1.4-8.2); BASOPHILS 0.7 % (0.0-2.0); EOSINOPHILS 0.1 % (0.0-3.0); HEMATOCRIT 48.6 % (42.0-52.0); HEMOGLOBIN 16.1 gm/dL (14.0-18.0); LYMPHOCYTES 7.2 % (24.0-44.0); MCH 28.8 pg (26.0-34.0); MCHC 33.1 g/dL (28.0-37.0); MCV 86.9 fL (80.0-100.0); MONOCYTES 9.7 % (1.0-8.0); PLATELET COUNT 233 thou/uL (150-400); POLYS 82.3 % (36.0-66.0); RBC 5.59 mil/uL (4.50-6.00); RDW 15.2 % (10.5-14.5); WBC 15.4 thou/uL (4.0-11.0)
[2019-11-22 23:43] LABS: CALCIUM 7.9 mg/dL (8.5-10.1); CREATININE 1.4 mg/dL (0.7-1.3); POTASSIUM 3.6 mmol/L (3.5-5.1)
[2019-11-23 02:40] LABS: URINE BILIRUBIN NEGATIVE (Negative); URINE BLOOD 3+ (Negative); URINE CLARITY CLEAR; URINE COLOR YELLOW; URINE GLUCOSE-RANDOM* NEGATIVE (Negative); URINE KETONES NEGATIVE (Negative); URINE LEUKOCYTES-REFLEX NEGATIVE (Negative); URINE NITRITE-REFLEX NEGATIVE (Negative); URINE PROTEIN (DIPSTICK) 2+ (Negative); URINE SPECIFIC GRAVITY 1.015 (1.005-1.035); URINE UROBILINOGEN 0.2 E.U./dl (0.2-1.0)
[2019-11-23 02:41] LABS: BACTERIA-REFLEX 1-9 Few /HPF (None Seen); CASTS None Seen /LPF (None Seen); CRYSTALS None Seen /LPF (None Seen); MUCUS 0-3 Light strn/LPF (None Seen); SQUAMOUS 0-3 Few /LPF (0-3); URINE WBC-REFLEX 0-5 Rare /HPF (0-5)
[2019-11-23] MEDS ORDERED: PROMETH-CODEIN 65 ML PO (03:38)
[2019-11-23 04:02] VITALS: BP 153/82
[2019-11-24] MEDS ORDERED: PREDNISONE 20 M20 MG PO (13:12)
[2019-11-24] MEDS ORDERED: KEFLEX500 M1 PO (13:12)
[2019-11-24] MEDS ORDERED: BACTRIM DS TAB1 EAC1 PO (13:12)
[2019-11-24] MEDS ORDERED: NORCO 5-325 TA1 EAC2 PO (13:14)
== END 2019-11-23 04:03 | disposition home or self-care (01) ==
LOC: ER 21:05
PROVIDERS: Emergency Medicine
DX: R50.9 Fever, unspecified (principal); Z20.828 Contact with and (suspected) exposure to other viral communicable diseases; R06.02 Shortness of breath; R05 Cough; R35.0 Frequency of micturition; R51 Headache; R11.0 Nausea; R53.81 Other malaise; R23.4 Changes in skin texture; E66.01 Morbid (severe) obesity due to excess calories; E11.9 Type 2 diabetes mellitus without complications; M19.90 Unspecified osteoarthritis, unspecified site; I11.0 Hypertensive heart disease with heart failure; I50.30 Unspecified diastolic (congestive) heart failure; F17.210 Nicotine dependence, cigarettes, uncomplicated; Z68.38 Body mass index [BMI] 38.0-38.9, adult; Z88.8 Allergy status to other drugs, medicaments and biological substances; Z79.899 Other long term (current) drug therapy

== ENCOUNTER 2019-11-24 08:50 | Emergency (ER) | payer OTHER ==
[~2019-11-24] VITALS: Ht 177.8 cm; Wt 136.1 kg
[~2019-11-24 08:50] MED LIST changes: +PROMETH-CODEIN 65 ML PO
[2019-11-24 10:06] LABS: HEMATOCRIT 47.1 % (42.0-52.0); HEMOGLOBIN 15.7 gm/dL (14.0-18.0); MCHC 33.4 g/dL (28.0-37.0); MCV 86.8 fL (80.0-100.0); PLATELET COUNT 206 thou/uL (150-400); RBC 5.43 mil/uL (4.50-6.00); RDW 15.4 % (10.5-14.5); WBC 10.2 thou/uL (4.0-11.0)
[2019-11-24 10:17] LABS: CREATININE 1.3 mg/dL (0.7-1.3); POTASSIUM 3.9 mmol/L (3.5-5.1)
[2019-11-24 10:31] LABS: ALBUMIN 3.2 g/dL (3.4-5.0); DIRECT BILIRUBIN 0.1 mg/dL (<0.1-0.2); TOTAL BILIRUBIN 0.3 mg/dL (0.2-1.0); TOTAL PROTEIN 7.1 g/dL (6.4-8.2)
[2019-11-24 10:41] LABS: URINE BILIRUBIN NEGATIVE (Negative); URINE BLOOD 3+ (Negative); URINE CLARITY CLEAR; URINE COLOR YELLOW; URINE GLUCOSE-RANDOM* NEGATIVE (Negative); URINE KETONES NEGATIVE (Negative); URINE LEUKOCYTES-REFLEX NEGATIVE (Negative); URINE NITRITE-REFLEX NEGATIVE (Negative); URINE PROTEIN (DIPSTICK) 2+ (Negative); URINE SPECIFIC GRAVITY 1.025 (1.005-1.035)
[2019-11-24 11:20] LABS: MUCUS 4-6 Moderate strn/LPF (None Seen); SQUAMOUS 4-10 Moderate /LPF (0-3); YEAST-REFLEX Present (None Seen)
[2019-11-24 11:21] LABS: BACTERIA-REFLEX None Seen /HPF (None Seen); CASTS None Seen /LPF (None Seen); CRYSTALS None Seen /LPF (None Seen); URINE RBC 3-10 Few /HPF (0-2); URINE WBC-REFLEX 0-5 Rare /HPF (0-5)
[2019-11-24 11:34] LABS: ABSOLUTE NEUTROPHILS 7.3 thou/uL (1.4-8.2); ATYPICAL LYMPHS 4 %
[2019-11-24] MEDS ORDERED: PREDNISONE 20 M20 MG PO (13:12)
[2019-11-24] MEDS ORDERED: KEFLEX500 M1 PO (13:12)
[2019-11-24] MEDS ORDERED: BACTRIM DS TAB1 EAC1 PO (13:12)
[2019-11-24] MEDS ORDERED: NORCO 5-325 TA1 EAC2 PO (13:14)
[2019-11-24 13:29] VITALS: BP 152/95
--- NOTE | 2019-11-25 10:54 | EKG ---
[facility] [place] [address] ELECTROCARDIOGRAM REPORT Name: DESTIN WHITFIELD Room #: DEP 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: MYRNACAAJ : 1965 Requested By: Zoey Tejada Order Number: [id number] MD: Devonte Camacho Measurements Intervals [place] Rate: 108 P: 40 MI: 142 QRS: 54 QRSD: 90 T: 60 QT: 344 QTc: 461 Interpretive Statements Sinus tachycardia Otherwise normal tracing Compared to ECG 12/22/2018 16:20:34 No significant changes Electronically Signed On 11-25-2019 10:53:52 CDT by Devonte Camacho [email or web address] <ELECTRONICALLY SIGNED> By: Devonte Camacho MD, FACC 11/25/19 1053 5 5 Devonte Camacho MD, [facility] /EPI
== END 2019-11-24 13:29 | disposition home or self-care (01) ==
LOC: ER 08:50
PROVIDERS: Emergency Medicine
DX: L03.211 Cellulitis of face (principal); I10 Essential (primary) hypertension; E11.9 Type 2 diabetes mellitus without complications; F17.210 Nicotine dependence, cigarettes, uncomplicated; Z79.899 Other long term (current) drug therapy; Z88.8 Allergy status to other drugs, medicaments and biological substances

== ENCOUNTER 2020-08-11 15:23 | Inpatient (IN) | payer OTHER ==
[~2020-08-11] VITALS: Ht 177.8 cm; Wt 161.9 kg
[~2020-08-11 15:23] MED LIST changes: +BACTRIM DS TAB1 EAC1 PO; +DOXYCYCLINE HY100 M3 PO; +Dermacerin 4 OZ. TOP; +FUROSEMIDE 20 M20 M1 PO; +GENTAMICIN SULF30 GM TOP; +NORCO 5-325 TA1 EAC2 PO; +PREDNISONE 20 M20 MG PO
[2020-08-11 15:30] VITALS: BP 173/97
[2020-08-11 17:10] LABS: ABSOLUTE NEUTROPHILS 7.7 thou/uL (1.4-8.2); BASOPHILS 0.7 % (0.0-2.0); EOSINOPHILS 0.9 % (0.0-3.0); HEMATOCRIT 44.8 % (42.0-52.0); MCH 29.5 pg (26.0-34.0); MCHC 33.5 g/dL (28.0-37.0); MCV 88.1 fL (80.0-100.0); MONOCYTES 11.8 % (1.0-8.0); PLATELET COUNT 266 thou/uL (150-400); POLYS 75.6 % (36.0-66.0); RBC 5.08 mil/uL (4.50-6.00); RDW 15.9 % (10.5-14.5); WBC 10.2 thou/uL (4.0-11.0)
[2020-08-11 17:29] LABS: CALCIUM 8.9 mg/dL (8.5-10.1); CREATININE 1.3 mg/dL (0.7-1.3); POTASSIUM 5.1 mmol/L (3.5-5.1)
[2020-08-11 17:43] LABS: ALBUMIN 3.3 g/dL (3.4-5.0); TOTAL BILIRUBIN 0.5 mg/dL (0.2-1.0); TOTAL PROTEIN 8.1 g/dL (6.4-8.2)
[2020-08-11 19:09] VITALS: BP 173/97
[2020-08-11 19:28] VITALS: BP 119/80
[2020-08-11 20:01] VITALS: BP 162/81
[2020-08-12 00:02] VITALS: BP 126/68
--- NOTE | 2020-08-12 02:36 | NUR ---
ASSUMED CARE OF PT FROM ED AT 1950HRS. PT IS AOX4 AND LETS NEEDS BE KNOWN. PT IS UP AD BABS. PT WAS ORIENTED TO THE UNIT AND HIS ROOM. PT WAS ABLE TO ANSWER ALL ADMISSION RELATED QUESTIONS. BLE CELLULITIS. WOUND PICS TAKEN. ASSESSMENT CHARTED. PT RAN ST ON TELE. ORDERS RECEIVED AND STARTED. PT WAS ABLE TO GET COMFORTABLE AND SLEEP PART OF THE SHIFT. VSS AND NO S/S OF ACUTE DISTRESS. WILL CONTINUE TO MONITOR.
[2020-08-12 04:35] VITALS: BP 161/94
[2020-08-12 07:57] VITALS: BP 155/97
--- NOTE | 2020-08-12 14:29 | NUR ---
ASSUMED PT CARE THIS AM. PT A&OX4. PATIENT TO WEAR OXYGEN WHEN SLEEPING, BUT FREQUENTLY TAKES THE OXYGEN OFF. REINFORCED THE IMPORTANCE OF WEARING OXYGEN WHEN SLEEPING. BLOOD SUGARS BEING MONITORED. IV BECAME INFILTRATED, AWAITING NEW IV TO BE PLACED. BLE WOUNDS DRESSED ORDERED. PATIENT TOLERATED THIS WELL. GAVE TYLENOL FOR PAIN THIS AM. TAKES MEDS WITHOUT ISSUE. ABLE TO MAKE ALL NEEDS KNOWN. PATIENT AMBULATORY TO THE BATHROOM.
--- NOTE | 2020-08-12 14:35 | NUR ---
PT ADMITTED RELATED TO CELLULITIS. CM REVIEWED CHART AND SPOKE WITH CARE TEAM. CM MET WITH PT AT BEDSIDE THIS DAY. PT APPEARED TO BE A&O X4. CM ROLE INTRODUCED. PT INDICTED HE LIVES IN A HOUSE WITH HIS , KIDS, AND HIS 'S GRANDFATHER. 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 HE HAS NOC O2 AT 2L THROUGH [facility] AND HAD HH IN THE PAST. PT INDICATED HE PLANS TO RETURN HOME WITH HH ONCE MEDICALLY STABLE. CM FOLLOWING REGARDING DC PLANNING. PT ON IV VANC AND WOUND CARE IS CONSULTED. POSSIBLE DC HOME TOMORROW.
[2020-08-12 19:51] VITALS: BP 140/80
[2020-08-12 22:06] LABS: GLYCOHEMOGLOBIN (HGB A1C) 6.8 % (4.8-5.6)
[2020-08-13 07:45] VITALS: BP 130/50
--- NOTE | 2020-08-13 09:09 | NUR ---
ORDERS RECEIVED FOR EVAL AND TREAT. SPOKE TO Pt WHO STATES HE HAS ALREADY BEEN UP WITHOUT DIFFICULTY AND IS HAVING NO PROBLEMS WITH HIS MOBILITY. Pt DECLINING P.T. EVAL BUT SOUNDS LIKE IT IS NOT NEEDED. WILL BE AVAILABLE TO ASSESS IF ANY PROCEDURES OR TESTS IMPAIR HIS MOBILITY. WILL AWAIT NEW ORDERS IF NEEDED.
[2020-08-13 15:40] VITALS: BP 141/87
--- NOTE | 2020-08-13 20:18 | NUR ---
PT ALERT AND ORIENTED TIMES FOUR. VSS. PT DENIES PAIN/SOA. PT TOLERATES MEDS AND MEALS. BLE DRESSING CHANGED THIS SHIFT. PT UP AB BABS WITH STEADY GAIT. PT PROGRESSING TOWRADS POC GOALS.
[2020-08-13 20:23] VITALS: BP 152/85
[2020-08-14 05:21] LABS: HEMATOCRIT 45.8 % (42.0-52.0); MCHC 32.7 g/dL (28.0-37.0); MCV 88.6 fL (80.0-100.0); RBC 5.17 mil/uL (4.50-6.00); RDW 15.7 % (10.5-14.5)
[2020-08-14 05:35] LABS: CALCIUM 8.6 mg/dL (8.5-10.1); CREATININE 1.3 mg/dL (0.7-1.3); POTASSIUM 4.1 mmol/L (3.5-5.1)
[2020-08-14 07:42] VITALS: BP 147/64
--- NOTE | 2020-08-14 10:05 | HC ---
[facility] [place] [address] CONSULTATION Name: DESTIN WHITFIELD ANABEL Room #: 454-P [facility] IN M.R.#: [id number] Admission: 08/11/20 Attend Phys: Tree Zurita MD Discharge: Date of : 69 Report #: [id number] THIS REPORT FOR: cc: SESAR WOODWARD Physician not on staff Augie Lai MD ~ DATE OF SERVICE: 08/12/2020 CHIEF COMPLAINT: Venous ulcers and cellulitis, both lower extremities. HISTORY OF PRESENT ILLNESS: This is a 55-year-old male patient with whom I am familiar from previous hospitalization, who has a history of recurrent venous ulcers and cellulitis. He developed increased pain, swelling in his legs and was admitted for intravenous antibiotic therapy. I have been asked to see him with regard to wound care. The patient states that the ulcerations are quite a bit worse this time. PAST MEDICAL HISTORY: Positive for type 2 diabetes mellitus, obesity, pancreatitis, history of recurring cellulitis to his lower extremities, history of diastolic heart failure. MEDICATIONS: Include amlodipine, furosemide, metformin. ALLERGIES: SULFA AND IBUPROFEN. SOCIAL HISTORY: The patient does smoke cigarettes. No alcohol use. FAMILY HISTORY: Noncontributory. REVIEW OF SYSTEMS: CONSTITUTIONAL: The patient denies fever, chills or weight loss. NEUROLOGICAL: The patient denies focal weakness, numbness, or tingling. EYES: The patient denies visual changes, redness, or drainage. ENT: The patient denies earache, nasal drainage, or sore throat. CARDIOVASCULAR: The patient denies chest pain, palpitations or diaphoresis. PULMONARY: The patient denies cough or shortness of breath. GASTROINTESTINAL: The patient denies nausea, vomiting, diarrhea or abdominal pain. ORTHOPEDIC: The patient denies pain, swelling and ulceration, lower extremities. Other systems in a 14-point review of systems are negative. PHYSICAL EXAMINATION: VITAL SIGNS: At this time include temperature 36.1, pulse 107, respiratory rate 21, blood pressure 155/97. [address] [address] CONSULTATION Name: DESTIN WHITFIELD [facility] Room #: 454-[facility] IN .R.#: [id number] Admission: 08/11/20 Attend Phys: Tree Zurita MD Discharge: Date of : 69 Report #: [id number] GENERAL: This is a somewhat chronically ill-appearing male patient who appears to be in no distress. HEENT: Head normocephalic. Nose and throat are clear. NECK: Supple. ABDOMEN: Soft. Bowel sounds present. EXTREMITIES: Lower extremities demonstrate cellulitic changes to bilateral lower extremities with venous ulcerations to both calves. There is moderate fibrin present with moderate tenderness noted. NEUROLOGIC: The patient is alert, oriented, appropriate. LABORATORY STUDIES: Include white blood cell count 10.2 with a hemoglobin of 15.0. Sodium 136, potassium 5.1, chloride 103, CO2 of 27, BUN 13, creatinine 1.3, albumin is 3.3. CLINICAL IMPRESSION: 1. Cellulitis, bilateral lower extremities. 2. Venous ulcerations, bilateral lower extremities. 3. Type 2 diabetes mellitus and morbid obesity. 4. Mild protein-calorie malnutrition. 5. Generalized debility. RECOMMENDATIONS: At this point in time, we will recommend Silvadene, morphine cream, Xeroform, ABD, Kerlix and Jose Roberto bilaterally. Elevation of the lower extremities. Intravenous antibiotic therapy. Eventually, I think additional compression could be employed. I appreciate being asked to see him in consultation. <ELECTRONICALLY SIGNED> By: Augie Lai MD 08/14/20 1005 1208 1218 Augie Lai MD /nt
--- NOTE | 2020-08-14 12:03 | NUR ---
ASSUMED PT CARE THIS AM. PT VSS, A&OX4. PATIENT ABLE TO MAKE NEEDS KNOWN. PATIENT HAS A FLAT AFFECT, WHEN NURSE ASKS WHAT IS WRONG, PATIENT STATES HE WANTS TO KNOW THE PLAN FOR DISCHARTGING AND IS READY TO GO HOME. IV PATENT, ANTIBIOTICS INFUSED. PATIENT REMAINS CONTINENT AND AMBULATES AROUND ROOM INDEPENDENTLY. TOOK MEDS WITHOUT ISSUE THIS AM. ON ROOM AIR. REPORTS PAIN AT A 6, WHEN ASKED IF THE PATIENT WANTED ANY MEDICATION FOR PAIN, THE PATIENT DENIED. REPORTING NO NUMBNESS OR TINGLING.
[2020-08-14] MEDS ORDERED: ZYVOX600 MG PO (13:24)
[2020-08-14 14:33] VITALS: BP 147/64
--- NOTE | 2020-08-14 15:11 | NUR ---
CARE TEAM INDICATED THAT PT IS MEDICALLY STABLE TO DISHCARGE HOME THIS DAY. PT TO DC HOME TO SELF CARE. NO OTHER CM INTERVENTION INDICATED. PT HAD TRANSPORT HOME. NO OTHER CM INTERVENTION INDICATED. CASE CLOSED.
== END 2020-08-14 14:54 | disposition home or self-care (01) | DRG 603 ==
LOC: ER 15:23 → EROBS 18:54 → 4W 18:54
PROVIDERS: Hospitalist; Nurse Practitioner Family; ADMIT Internal Medicine; ATTEND Internal Medicine
DX: L03.116 Cellulitis of left lower limb (principal); L97.829 Non-pressure chronic ulcer of other part of left lower leg with unspecified severity; L97.819 Non-pressure chronic ulcer of other part of right lower leg with unspecified severity; E44.1 Mild protein-calorie malnutrition; I50.32 Chronic diastolic (congestive) heart failure; E11.9 Type 2 diabetes mellitus without complications; L03.115 Cellulitis of right lower limb; R53.81 Other malaise; F17.210 Nicotine dependence, cigarettes, uncomplicated; E66.01 Morbid (severe) obesity due to excess calories; M19.90 Unspecified osteoarthritis, unspecified site; I87.8 Other specified disorders of veins; I11.0 Hypertensive heart disease with heart failure; Z87.11 Personal history of peptic ulcer disease; Z88.2 Allergy status to sulfonamides; Z88.8 Allergy status to other drugs, medicaments and biological substances; Z68.43 Body mass index [BMI] 50.0-59.9, adult; Z88.6 Allergy status to analgesic agent; Z87.81 Personal history of (healed) traumatic fracture
CPT/HCPCS: 10045; 10047

== ENCOUNTER 2020-12-18 13:32 | Inpatient (IN) | payer OTHER ==
[~2020-12-18] VITALS: Ht 177.8 cm; Wt 154.2 kg
[~2020-12-18 13:32] MED LIST changes: +METFORMIN HCL1000 MG PO; -METFORMIN HCL500 M3 PO; +ZYVOX600 MG PO
[2020-12-18 13:35] VITALS: BP 169/101
[2020-12-18 15:41] LABS: HEMATOCRIT 44.8 % (42.0-52.0); HEMOGLOBIN 14.4 gm/dL (14.0-18.0); MCH 28.5 pg (26.0-34.0); MCHC 32.3 g/dL (28.0-37.0); MCV 88.3 fL (80.0-100.0); RBC 5.07 mil/uL (4.50-6.00); WBC 8.9 thou/uL (4.0-11.0)
[2020-12-18 15:49] LABS: CALCIUM 8.8 mg/dL (8.5-10.1); POTASSIUM 4.1 mmol/L (3.5-5.1)
[2020-12-18 15:56] LABS: ALBUMIN 3.1 g/dL (3.4-5.0); TOTAL BILIRUBIN 0.3 mg/dL (0.2-1.0); TOTAL PROTEIN 7.8 g/dL (6.4-8.2)
[2020-12-18 17:46] VITALS: BP 159/107; BP 162/93
[2020-12-18 18:25] VITALS: BP 157/78
--- NOTE | 2020-12-18 21:14 | NUR ---
Pt. arrived to the unit at 1830 from the emergency room. He is currently resting in bed and c/o bilateral lower leg pain and itching. Lorena KENNEDY called and notified. See new orders in CPOE. Admission assessment and history is completed. Pt. is up ad estephania.
--- NOTE | 2020-12-19 04:14 | NUR ---
Pt. rested quietly during the night when checked on during frequent rounds. No further c/o pain or itching.
[2020-12-19 06:13] LABS: HEMATOCRIT 44.3 % (42.0-52.0); HEMOGLOBIN 14.5 gm/dL (14.0-18.0); MCH 29.1 pg (26.0-34.0); MCHC 32.8 g/dL (28.0-37.0); MCV 88.5 fL (80.0-100.0); RDW 16.9 % (10.5-14.5); WBC 8.2 thou/uL (4.0-11.0)
[2020-12-19 06:25] LABS: CALCIUM 8.6 mg/dL (8.5-10.1); CREATININE 1.7 mg/dL (0.7-1.3); POTASSIUM 4.7 mmol/L (3.5-5.1)
--- NOTE | 2020-12-19 07:38 | NUR ---
Extreme class III obesity with BMI 48.8. Admit with cellulitis, venous stasis disease, chronic lower extremity edema. Hx DM, CKD, + tobacco use. Wt gain 22 lb x 9 mo and 35 lb over 2 yrs. BG currently controlled, last A1C 6.8 in 07/2020. Tolerates meals. Will add helena bid for wounds. Encourage lifestyle changes, possibly would benefit from bariatric surgical consultation. Low nutrition risk otherwise.
[2020-12-19 08:00] VITALS: BP 153/98
--- NOTE | 2020-12-19 12:14 | NUR ---
PT ADMITTED RELATED TO CELLILITIS AND MING. CM REVIEWED CHART AND SPOKE WITH CARE TEAM. CM MET WITH PT AT BEDSIDE THIS DAY. PT INDICATED HE LIVES IN A HOUSE WITH HIS SPOUSE AND KID. HE INDICATED THAT THERE ARE THREE STEPS TO ENTER AND NO STEPS INSIDE. 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 PT INDICATED HE HAS NOC O2 A 2L THROUGH [facility]. HE INDICATED HE PLANS TO RETURN HOME ONCE MEDICALLY STABLE. PT'S PCP IS SESAR VANEGAS. PT IS ON IV CEFAZOLIN. CM FOLLOWING REGARDING DC PLANNING.
--- NOTE | 2020-12-19 19:32 | NUR ---
Assumed pt care at 7am.Pt in bed most of the time today with foot of bed elevated.Assessment completed.vss.Pt tolerated med and diet.Dr Soni and Lucita here,order noted.Received call from lab about pt blood culture done yestaerday.Dr Soni notified and order received.Will continue to monitor.
[2020-12-19 19:34] VITALS: BP 138/72
--- NOTE | 2020-12-20 05:58 | NUR ---
Pt. rested quietly during the night when checked on during frequent rounds. Requesting something stronger for pain and itching. (see cpoe). Meds given (see emar) with relief noted.
[2020-12-20 07:45] VITALS: BP 161/80
[2020-12-20 08:07] LABS: CALCIUM 8.6 mg/dL (8.5-10.1); CREATININE 1.5 mg/dL (0.7-1.3); POTASSIUM 4.5 mmol/L (3.5-5.1)
--- NOTE | 2020-12-20 14:00 | NUR ---
PATIENT HAS HAD MULTIPLE IV STICKS AND INFILTRATED PIV LINES. DISCUSSED MIDLINE PLACEMENT AND HE AGREED TO RISKS OF DVT AND INFECTION WELL BENIFITS. THE LEFT CEPHALIC VEIN WAS WIDLEY PATENT. A #4F POWER MIDLINE WAS PLACED. THE 20CM LINE ADVANCED WITHOUT DIFFICULTY. THE LINE WAS SECURED AND RELEASED FOR USE
[2020-12-20 16:30] VITALS: BP 137/90
--- NOTE | 2020-12-20 16:56 | NUR ---
Assumed pt care at 7am.Pt in bed most of the time today sleeping on and off. 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 No verbal c/o at present,will continue to monitor.
[2020-12-20 19:38] VITALS: BP 176/97
--- NOTE | 2020-12-21 05:25 | NUR ---
Pt. rested quietly during the night when checked on during frequent rounds. Pain meds given for leg pain and itching (see emar) with relief. Bilateral legs elevated at all times.
[2020-12-21 07:50] VITALS: BP 146/94
--- NOTE | 2020-12-21 14:17 | NUR ---
Assumed pt care at 7am.Pt in bed resting and waiting for breakfast.Assessment completed.vss but elevated bp noted.Oral bp meds given other am meds with relief.Pt tolerated meds and diet.Dr Hernandez and Nae here,order noted.Pt took shower later this afternoon.Pt will possible dc home am.Will continue to monitor.
[2020-12-21] MEDS ORDERED: METOPROLOL TART25 MG PO (14:26)
[2020-12-21] MEDS ORDERED: MINOCYCLINE 5050 M1 PO (14:26)
[2020-12-21] MEDS ORDERED: COZAAR 25 MG TA25 M1 PO (14:26)
[2020-12-21 15:10] VITALS: BP 137/75
[2020-12-21 20:00] VITALS: BP 156/97
--- NOTE | 2020-12-22 03:50 | NUR ---
Pt. rested quietly during the night when checked on during frequent rounds. Meds given for bilateral leg pain and itching (see emar) with some relief noted.
[2020-12-22 11:29] VITALS: BP 156/97
--- NOTE | 2020-12-22 12:08 | NUR ---
ASSUMED PT CARE THIS AM. PT A&OX4, ABLE TO MAKE NEEDS KNOWN. PATIENT REPORTS PAIN IN HIS BILATERAL LOWER EXTREMETIES, RESPONDS WELL TO PAIN MEDICATION GIVEN. PATIENT REPORTING NO NUMBNESS OR TINGLING. PATIENT IS ON ROOM AIR. IV PATENT, SALINE LOCKED. MEDICATIONS TAKEN WITHOUT ISSUE THIS AM. CALL LIGHT WITHIN REACH.
--- NOTE | 2020-12-22 13:49 | NUR ---
CARE TEAM INDICATED THAT PT IS MEDICALLY STABLE TO DC HOME THIS DAY. PT IS TO DC HOME TO SELF CARE. CM MET WITH PT AT BEDSIDE THIS DAY. HE IS AWARE OF DC. PT INDICATED HE HAS TRANSPORT HOME THIS DAY. NO OTHER CM INTERVENTION INDICATED. CASE CLOSED.
== END 2020-12-22 14:03 | disposition home or self-care (01) | DRG 603 ==
LOC: ER 13:32 → EROBS 17:32 → 4W 17:32
PROVIDERS: Emergency Medicine; Hospitalist; ADMIT Internal Medicine; ATTEND Internal Medicine
PROC: 05HY33Z Insertion of Infusion Device into Upper Vein, Percutaneous Approach (ICD-10-PCS; principal; 2020-12-20)
DX: L03.115 Cellulitis of right lower limb (principal); N17.9 Acute kidney failure, unspecified; Z68.42 Body mass index [BMI] 45.0-49.9, adult; L03.116 Cellulitis of left lower limb; R60.0 Localized edema; E11.22 Type 2 diabetes mellitus with diabetic chronic kidney disease; S80.921A Unspecified superficial injury of right lower leg, initial encounter; G47.33 Obstructive sleep apnea (adult) (pediatric); M19.90 Unspecified osteoarthritis, unspecified site; E66.01 Morbid (severe) obesity due to excess calories; I87.8 Other specified disorders of veins; I12.9 Hypertensive chronic kidney disease with stage 1 through stage 4 chronic kidney disease, or unspecified chronic kidney disease; N18.30 Chronic kidney disease, stage 3 unspecified; F17.210 Nicotine dependence, cigarettes, uncomplicated; Z20.822 Contact with and (suspected) exposure to COVID-19; Z79.899 Other long term (current) drug therapy; Z87.11 Personal history of peptic ulcer disease; Z88.6 Allergy status to analgesic agent; Z88.1 Allergy status to other antibiotic agents; Z88.2 Allergy status to sulfonamides; Z90.49 Acquired absence of other specified parts of digestive tract; Z99.81 Dependence on supplemental oxygen
CPT/HCPCS: 10040; 27000

== ENCOUNTER 2021-01-14 17:09 | Inpatient (IN) | payer OTHER ==
[~2021-01-14] VITALS: Ht 177.8 cm; Wt 141.1 kg
[~2021-01-14 17:09] MED LIST changes: +COZAAR 25 MG TA25 M1 PO; +METOPROLOL TART25 MG PO; +MINOCYCLINE 5050 M1 PO
[2021-01-14 17:26] VITALS: BP 151/108
[2021-01-14] MEDS ORDERED: TESSALON PERLE100 MG PO (18:07)
[2021-01-14] MEDS ORDERED: PROAIR HFA8.5 GM INH (18:07)
[2021-01-14 18:32] LABS: ABSOLUTE NEUTROPHILS 6.5 thou/uL (1.4-8.2); EOSINOPHILS 1.3 % (0.0-3.0); HEMATOCRIT 49.3 % (42.0-52.0); HEMOGLOBIN 16.1 gm/dL (14.0-18.0); LYMPHOCYTES 20.5 % (24.0-44.0); MCH 27.8 pg (26.0-34.0); MCHC 32.5 g/dL (28.0-37.0); MCV 85.3 fL (80.0-100.0); MONOCYTES 10.7 % (1.0-8.0); PLATELET COUNT 470 thou/uL (150-400); POLYS 66.5 % (36.0-66.0); RBC 5.78 mil/uL (4.50-6.00); RDW 15.6 % (10.5-14.5); WBC 9.7 thou/uL (4.0-11.0)
[2021-01-14 18:39] LABS: CALCIUM 8.9 mg/dL (8.5-10.1); CREATININE 1.5 mg/dL (0.7-1.3); POTASSIUM 3.9 mmol/L (3.5-5.1)
--- NOTE | 2021-01-14 22:39 | NUR ---
PT C/O HEADACHE AND REQUESTED MEDICATION TO HELP HIM SLEEP. NOTIFIED JENNIFER MANNING NP. ORDERS RECEIVED.
[2021-01-14 23:22] LABS: CHOLESTEROL 209 mg/dL (<200); HDL CHOLESTEROL 28 mg/dL (>40); LDL CHOLESTEROL 117 mg/dL (<100); TC:HDL 7.5 Ratio (Not establshd); TRIGLYCERIDE 320 mg/dL (<150); VLDL 64 mg/dL (<40)
[2021-01-14 23:25] LABS: SERUM ASSESSMENT Clear
[2021-01-15] VITALS (8 sets, daily range): BP systolic 114–174; BP diastolic 75–115
--- NOTE | 2021-01-15 01:08 | NUR ---
PT SLEEPING AT THIS TIME. BP IMPROVED WITH SCHEDULED MEDICATION. HEADACHE RESOLVED. REMDESIVIR GIVEN. IVF INFUSING.
[2021-01-15 05:19] LABS: HEMATOCRIT 44.9 % (42.0-52.0); HEMOGLOBIN 15.1 gm/dL (14.0-18.0); MCH 28.8 pg (26.0-34.0); MCHC 33.7 g/dL (28.0-37.0); MCV 85.4 fL (80.0-100.0); RBC 5.26 mil/uL (4.50-6.00); RDW 15.5 % (10.5-14.5); WBC 7.7 thou/uL (4.0-11.0)
--- NOTE | 2021-01-15 05:21 | NUR ---
0521 - PT TEARFUL, C/O POUNDING HEADACHE. BP ELEVATED. NOTIFIED JENNIFER MANNING NP FOR HOSPITALIST. PER AUTOMOTIVE SERVICE PORTER, GIVE PO TYLENOL AND MORNING DOSE OF NORVASC EVEN THOUGH PT IS NPO AFTER MIDNIGHT. MEDICATIONS GIVEN. WILL MONITOR FURTHER.
[2021-01-15 05:53] LABS: ALBUMIN 3.1 g/dL (3.4-5.0); CALCIUM 8.2 mg/dL (8.5-10.1); CREATININE 1.8 mg/dL (0.7-1.3); POTASSIUM 4.6 mmol/L (3.5-5.1); TOTAL BILIRUBIN 0.3 mg/dL (0.2-1.0); TOTAL PROTEIN 8.1 g/dL (6.4-8.2)
--- NOTE | 2021-01-15 07:20 | NUR ---
REPORT CALLED TO JESSI LYLES ON 3W.
--- NOTE | 2021-01-15 08:04 | EKG ---
[place] [address] [facility] [employer] [place] [address] ELECTROCARDIOGRAM REPORT Name: DESTIN WHITFIELDN Room #: 353-P ADM IN M.R.#: [id number] Admission: 01/14/21 Attend Phys: Amparo Soni MD Discharge: Date of : 69 Report #: [id number] [facility] ED Test Date: 2021-01-14 Test Time: 18:14:19 Pat Name: DESTIN WHITFIELD Department: Room: [facility] Gender: M [place] Nailer: MISHA : 1965 Requested By: Chin Holly Order Number: [id number] MD: Devonte Camacho Measurements Intervals [place] Rate: 119 P: 40 DE: 143 QRS: 44 QRSD: 89 T: 30 QT: 335 QTc: 472 Interpretive Statements Sinus tachycardia Otherwise no significant abnormality Compared to ECG 11/24/2019 09:06:42 No significant changes Electronically Signed On 01-15-2021 8:03:55 CDT by Devonte Camacho [email or web address] <ELECTRONICALLY SIGNED> By: Devonte Camacho MD, [facility] 01/15/21 [phone] Devonte Camacho MD, FACC /EPI
[2021-01-15 09:44] LABS: URINE BLOOD NEGATIVE (Negative); URINE CLARITY CLEAR; URINE COLOR YELLOW; URINE GLUCOSE-RANDOM* NEGATIVE (Negative); URINE KETONES NEGATIVE (Negative); URINE LEUKOCYTES NEGATIVE (Negative); URINE NITRITE NEGATIVE (Negative); URINE PROTEIN (DIPSTICK) 1+ (Negative); URINE UROBILINOGEN 0.2 E.U./dl (0.2-1.0)
[2021-01-15 09:47] LABS: ICTOTEST (BILI CONFIRMATORY) Negative (Negative); URINE BILIRUBIN NEGATIVE (Negative)
[2021-01-15 10:33] LABS: BACTERIA 1-9 Few /HPF (None Seen); CASTS None Seen /LPF (None Seen); CRYSTALS None Seen /LPF (None Seen); SQUAMOUS >10 Many /LPF (0-3); URINE RBC None Seen /HPF (NONE SEEN); URINE WBC 1-5 Rare /HPF (NONE SEEN)
--- NOTE | 2021-01-15 12:27 | 2DMMODE ---
[facility] [place] [address] 2 D/M-MODE ECHOCARDIOGRAM Name: DESTIN WHITFIELD ANABEL Room #: 353-P ADM IN M.R.#: [id number] Admission: 01/14/21 Attend Phys: Amparo Soni MD Discharge: Date of : 69 Report #: [id number] THIS REPORT FOR: cc: SESAR WOODWARD MD Physician not on staff Devonte Camacho MD [facility] ~ APPROVED REPORT Study performed: 01/15/2021 10:30:45 EXAM: Comprehensive 2D, Doppler, and color-flow Echocardiogram Patient Location: Bedside Room #: 353 Status: routine BSA: 2.62 HR: 78 bpm BP: 174/103 mmHg Rhythm: NSR Other Information Study Quality: Poor Technically limited study due to body habitus. Indications Diabetes Dyspnea Elevated Troponin Hypertension/HDD 2D Dimensions IVSd: 11.43 (7-11mm) LVOT Diam: 25.07 (18-24mm) LVDd: 56.72 mm PWd: 10.85 (7-11mm) Ascending Ao: 28.55 (22-36mm) LVDs: 45.36 (25-40mm) Left Atrium: 41.08 (27-40mm) Aortic Root: 30.81 mm Aortic Valve AoV Peak Ryland.: 1.09 m/s AO Peak Gr.: 4.79 mmHg Left Ventricle Left ventricle is at the upper limits of normal. Regional wall motion [facility] [address] [place] [address] 2 D/M-MODE ECHOCARDIOGRAM Name: DESTIN WHITFIELD ANABEL Room #: 353-P ADM IN M.R.#: [id number] Admission: 01/14/21 Attend Phys: [place] Discharge: Date of : 69 Report #: [id number] is not well visualized but grossly normal. There is normal left ventricular wall thickness. Left ventricular systolic function at the lower limits of normal LVEF is 50%. Mild diastolic dysfunction Right Ventricle The right ventricle is normal size. The right ventricular systolic function is normal. Atria The left atrium size is normal. The right atrium size is normal. Aortic Valve The aortic valve is normal in structure. No aortic regurgitation is present. There is no aortic valvular stenosis. Mitral Valve The mitral valve is normal in structure. Trace mitral regurgitation. No evidence of mitral valve stenosis. Tricuspid Valve The tricuspid valve is normal in structure. There is no tricuspid valve regurgitation noted. Pulmonic Valve The pulmonary valve is normal in structure. There is no pulmonic valvular regurgitation. Great Vessels The aortic root is normal in size. IVC is normal in size and collapses >50% with inspiration. Pericardium There is no pericardial effusion. <Conclusion> Limited/abbreviated study. Difficult imaging windows Left ventricular systolic function at the lower limits of normal LVEF is 50%. Mild diastolic dysfunction The aortic valve is normal in structure. No aortic regurgitation or stenosis. The mitral valve is normal in structure. Trace mitral [facility] [address] [place] [address] 2 D/M-MODE ECHOCARDIOGRAM Name: DESTIN WHITFIELD ANABEL Room #: 353-P ADM IN M.R.#: [id number] Admission: 01/14/21 Attend Phys: [place] Discharge: Date of : 69 Report #: [id number] regurgitation. There is no pericardial effusion. <ELECTRONICALLY SIGNED> By: Devonte Camacho MD, FACC 01/15/21 1226 122 25 Devonte Camacho MD, FACC /INF
--- NOTE | 2021-01-15 15:01 | NUR ---
INITIAL ASSESSMENT: SW reviewed chart and spoke with nursing and attending physician. Pt was admitted from home due to COVID. Pt placed in Enhanced Isolation. Pt has not received a COVID vaccination. Pt is afebrile and on 2L of O2. Pt is on IV abx, IV steroids and Remdesivir. SW spoke with pt via phone. Introduced role of SW. Pt is alert/orientated x 4. Pt reports he lives at home with his and family. Prior to admission, pt was independent with ADLs. No use of DME for ambulation. Pt has nocturnal O2 through [facility] due to ANNA. No hx of services or post-acute placement. Pt's PCP is Dr. Fadi Lamas at the [facility] in [place]. Plan is for pt to discharge home when medically stable. SW is following to assist as needed with discharge planning.
--- NOTE | 2021-01-15 19:25 | NUR ---
RN ADMITTED FROM ER ABOUT 0800AM, PT IS COVID POSITIVE AT 01/14/21, PT IS A&OX4, PT IS ON O2 3-4L/MIN/NC , PT'S O2SAT STAYS AT 93-96%, PT'S VS ARE STABLE, PT HAS STARTED IV ABX AND TREAT COVID MEDICATIONS, PT DENIES PAIN AT DAY SHIFT.
[2021-01-16 00:06] LABS: GLYCOHEMOGLOBIN (HGB A1C) 7.1 % (4.8-5.6)
[2021-01-16 00:20] VITALS: BP 133/90
[2021-01-16 05:41] LABS: ALBUMIN 2.9 g/dL (3.4-5.0); CREATININE 1.5 mg/dL (0.7-1.3); POTASSIUM 4.2 mmol/L (3.5-5.1); TOTAL BILIRUBIN 0.2 mg/dL (0.2-1.0); TOTAL PROTEIN 7.3 g/dL (6.4-8.2)
--- NOTE | 2021-01-16 05:56 | NUR ---
PT MAKING SLOW PROGRESS TOWARDS GOALS. ON O2 AT 6L PER NC OVERNIGHT. HAS MILD SOA WITH TALKING. DOES REPORT HE FEELS SOA WITH ACTIVITY SUCH USING THE BATHROOM. LUNGS DIMINISHED THROUGHOUT. OCCASIONAL HARSH COUGH NOTED BUT DENIED ANY PRODUCTIVE SPUTUM.
[2021-01-16 07:14] VITALS: BP 149/92
--- NOTE | 2021-01-16 08:26 | HC ---
[facility] [place] [address] CONSULTATION Name: DESTIN WHITFIELD ANABEL Room #: 353-P [facility] IN M.R.#: [id number] Admission: 01/14/21 Attend Phys: Amparo Soni MD Discharge: Date of : 69 Report #: [id number] THIS REPORT FOR: cc: SESAR WOODWARD MD Physician not on staff Levi Hernandez MD ~ DATE OF SERVICE: 01/15/2021 INFECTIOUS DISEASE CONSULTATION ATTENDING PHYSICIAN: Dr. Soni. REASON FOR EVALUATION: COVID-19 infection, complicated by pneumonitis, respiratory failure. HISTORY OF PRESENT SUBJECTIVE: Chart reviewed. The patient examined. This 55-year-old gentleman who has significant medical history including obstructive sleep apnea requiring supplemental oxygen at night, also diabetes mellitus and hypertension, who believes he was exposed to COVID roughly three weeks ago, had developed increasing dyspnea over the last several days with associated cough. He experienced some chills, although no fevers, poor p.o. intake and anorexia and some generalized myalgias. He was encouraged to come to the ER. Initial chest x-ray showed no acute process; however, the CT did show some parenchymal changes consistent with ground glass in COVID. He was confirmed to have a positive COVID test. There is no evidence of PE. Lactic acid was 1.7. D-dimer of 0.51. Procalcitonin less than 0.05. He was noted to be hypoxemic. Currently maintained on supplemental oxygen 2 L per nasal cannula. He was empirically started on combination therapy including dexamethasone, remdesivir, azithromycin and ceftriaxone. ALLERGIES: IBUPROFEN AND BACTRIM. CURRENT MEDICATIONS: Include famotidine, metoprolol, amlodipine, nicotine, aspirin, cholecalciferol, zinc, ascorbic acid, dexamethasone, enoxaparin, ceftriaxone, guaifenesin, insulin sliding scale, ____, albuterol, azithromycin, remdesivir. PAST MEDICAL HISTORY: As described above, diabetes mellitus, history of hypertension, chronic renal insufficiency, pancreatitis, peptic ulcer disease, DJD, osteoarthritis. SOCIAL HISTORY: Current every day smoker. No illicit drug use. No ethanol. FAMILY HISTORY: Noncontributory. REVIEW OF SYSTEMS: Otherwise, unremarkable with the exception of the above. [facility] [address] [place] [address] CONSULTATION Name: DESTIN WHITFIELD ANABEL Room #: 353-P [facility] IN ..#: [id number] Admission: 01/14/21 Attend Phys: Amparo Soni MD Discharge: Date of : 69 Report #: [id number] PHYSICAL EXAMINATION: GENERAL: He is lying in a left lateral decubitus position, mild to moderate distress, appears somewhat chronically ill. He is obese, generally lucid. VITAL SIGNS: Temperature 97.7, pulse 85, respirations 18, blood pressure 159/109. SKIN: Warm, dry. HEENT: Normocephalic. Extraocular muscles intact. Nasal cannula in place. NECK: Supple. LUNGS: Few scattered coarse breath sounds. HEART: Regular. I do not appreciate a murmur. ABDOMEN: Obese, distended, firm, nontender. EXTREMITIES: No cyanosis. GENITOURINARY AND RECTAL: Deferred. LABORATORY DATA: Troponin elevated at ____. Echo, EF of 50%, no evidence of valvular disease. Urinalysis, 1-5 white cells. Blood cultures collected at time of admission are sterile thus far. Electrolytes from this morning, sodium 144, potassium 4.6, chloride 107, bicarbonate is 23, anion gap of 14, BUN and creatinine 23 and 1.8, glucose of 136, AST of 58, ALT of 101. Albumin 3.1, total protein of 8.1. CBC: White count of 7.7, H and H 15.1 and 44.9, platelets of 417. CT chest as noted above. TSH 1.568. ASSESSMENT AND PLAN: COVID-19 infection complicated by pneumonitis, respiratory failure secondary to diabetes mellitus, obstructive sleep apnea, hypertension. We will continue current approach as prescribed with directed therapy against coronavirus with dexamethasone, remdesivir, vitamins in addition to empiric therapy with ceftriaxone and azithromycin. Remains quite tenuous and raises question of probable additional complications and perhaps worsening deteriorating clinical status. Continue oxygen therapy as prescribed. ____ is following elevated troponin. <ELECTRONICALLY SIGNED> By: Levi Hernandez MD 01/16/21 0826 [id number] Levi Hernandez MD /nt
[2021-01-16 11:18] VITALS: BP 141/92
--- NOTE | 2021-01-16 12:36 | NUR ---
SW reviewed chart and spoke with nursing and attending physician. Pt remains in Enhanced Isolation due to COVID. Pt is afebrile and on 2L of O2. Pt is on IV abx, IV steroids and Remdesivir. No weekend discharge planned. Pt may benefit from PT/OT evals prior to discharge. Pt has nocturnal O2 in place at home. Will need a rest/exercise oximetry to determine home O2 needs. KONSTANTIN is following to assist as needed with discharge planning.
--- NOTE | 2021-01-16 12:38 | NUR ---
Pt assess for high risk screen on admit. Pt admitted with covid+, elevated troponin. Hx RLE cellulitis, BLE edmea, DMII, CKDIII, pancreatitis. Admitted frequently recently and is showing fluctuations in documented weights: CBW 304#, Nov 2020 340#, July 2020 357#. If weights are accurate, he is showing 15% loss since July, and 10% loss in a month. These are significant losses, if accurate, but could be contributed to fluid. Unable to reach pt via phone x 3 this date for weight hx. Intakes have been good on all past admissions. This admission, intake fair thus far and likely deminished r/t s/s covid and SOA. Will add Glucerna daily for possible sig wt loss. Place at low nutrition risk with interventions initiated.
[2021-01-16 16:14] VITALS: BP 146/80
[2021-01-16 19:02] VITALS: BP 130/80
--- NOTE | 2021-01-16 22:17 | NUR ---
PT RESTING IN BED. O2 PER NC REPORTED NOSE DRY AND RESPIRATORY PROVIDED HUMIDIFIER. LUNGS DIMINSHED, AGUSTINA SKIN TONE. PT REPORTING FATIGUE AND HEADACHE AND COUGH, PRNS PROVIDED. PT REPORTS PASSING GAS, BS DECREASED. PT PROVIDED HS SNACK. PT TALKED ABOUT HIS FIANCEE THAT HAS LUPUS AND COVID, BUT THAT SHE HAS RECOVERED FASTER THAN HIM.
[2021-01-16 23:17] LABS: ABSOLUTE NEUTROPHILS 10.3 thou/uL (1.4-8.2); BASOPHILS 0.7 % (0.0-2.0); HEMATOCRIT 43.1 % (42.0-52.0); LYMPHOCYTES 9.7 % (24.0-44.0); MCHC 32.6 g/dL (28.0-37.0); MCV 86.1 fL (80.0-100.0); MONOCYTES 9.7 % (1.0-8.0); PLATELET COUNT 356 thou/uL (150-400); POLYS 79.9 % (36.0-66.0); WBC 12.9 thou/uL (4.0-11.0)
[2021-01-17 02:43] VITALS: BP 150/92
[2021-01-17 05:53] LABS: ALBUMIN 2.9 g/dL (3.4-5.0); CALCIUM 8.2 mg/dL (8.5-10.1); CREATININE 1.4 mg/dL (0.7-1.3); POTASSIUM 4.4 mmol/L (3.5-5.1); TOTAL BILIRUBIN 0.2 mg/dL (0.2-1.0); TOTAL PROTEIN 7.1 g/dL (6.4-8.2)
[2021-01-17 07:20] VITALS: BP 146/82
[2021-01-17 11:12] VITALS: BP 139/84
[2021-01-17 15:25] VITALS: BP 127/82
[2021-01-17 20:15] VITALS: BP 155/74
--- NOTE | 2021-01-17 23:05 | NUR ---
PT RESTING IN BED. REPORTED PAIN MED RELIEVED HEADACHE. IVF INTACT. LUNGS DIMINISHED. OBESE, REDDENED SKIN TONE. O2 PER NC. PT PROVIDED PRN FOR SLEEP, PT STATED HIS GOAL WAS TO SLEEP TONIGHT.
[2021-01-18 04:36] LABS: ALBUMIN 2.9 g/dL (3.4-5.0); CALCIUM 8.2 mg/dL (8.5-10.1); CREATININE 1.2 mg/dL (0.7-1.3); POTASSIUM 4.3 mmol/L (3.5-5.1); TOTAL BILIRUBIN 0.2 mg/dL (0.2-1.0); TOTAL PROTEIN 6.8 g/dL (6.4-8.2)
[2021-01-18 05:54] VITALS: BP 149/94
[2021-01-18 07:21] VITALS: BP 136/92
[2021-01-18 11:17] VITALS: BP 132/69
[2021-01-18 15:30] VITALS: BP 129/70
--- NOTE | 2021-01-18 18:10 | NUR ---
ASSUMED PATIENT CARE AT 0700. A/0 X4. TOLERATED ON RA. PROGRESSING TOWARDS POC GOALS.
[2021-01-18 19:40] VITALS: BP 151/98
[2021-01-19 04:45] VITALS: BP 161/103
--- NOTE | 2021-01-19 05:38 | NUR ---
PT MAKING PROGRESS TOWARDS GOALS. PT ON ROOM AIR THROUGHOUT THE NIGHT. PT ABLE TO AMBULATE TO TOILET AND REPORTS MILD SOA WITH MOVEMENT. STATES COUGH HAS LESSENED IN SEVERITY. HOPES TO GO HOME TODAY.
[2021-01-19 07:19] VITALS: BP 154/90
--- NOTE | 2021-01-19 11:56 | NUR ---
DISCHARGE NOTE: KONSTANTIN reviewed chart and spoke with nursing and attending physician. Pt is medically stable to discharge home today. Rest/exercise oximetry to be completed prior to discharge. Pt test done on 01/18 and did not qualify for home O2. SW spoke with pt via phone to provide update and discuss discharge planning. Pt verbalized understanding of possible need for home O2. Pt is already established with [facility] for nocturnal O2. Will arrange with [facility] if pt need daytime O2. Pt states his family will be able to provide transportation home. No additional SW needs identified at this time. SW is following to assist should needs arise.
[2021-01-19] MEDS ORDERED: BAYER CHEWABLE81 MG PO (12:27)
[2021-01-19] MEDS ORDERED: PROVENTIL HFA6.7 G1 INH (12:27)
[2021-01-19] MEDS ORDERED: LOPRESSOR50 PO (12:27)
[2021-01-19] MEDS ORDERED: MIRALAX17 GM PO (12:27)
[2021-01-19] MEDS ORDERED: ZINC SULFATE50 MG PO (12:27)
[2021-01-19] MEDS ORDERED: NORVASC5 MG PO (12:27)
[2021-01-19] MEDS ORDERED: MUCINEX600 MG PO (12:27)
[2021-01-19] MEDS ORDERED: CEFDINIR300 MG PO (12:27)
[2021-01-19] MEDS ORDERED: ACEROLA C500 MG PO (12:42)
[2021-01-19] MEDS ORDERED: MELATONIN5 M1 PO (12:42)
[2021-01-19] MEDS ORDERED: DECADRON6 MG PO (12:42)
[2021-01-19] MEDS ORDERED: VITAMIN D325 MC2 PO (12:42)
[2021-01-19 13:19] VITALS: BP 154/90
== END 2021-01-19 14:07 | disposition home or self-care (01) | DRG 177 ==
LOC: ER 17:09 → EROBS 21:25 → 3W 21:25
PROVIDERS: Nurse Practitioner; Nurse Practitioner Family; ADMIT Hospitalist; ATTEND Hospitalist
PROC: XW033E5 Introduction of Remdesivir Anti-infective into Peripheral Vein, Percutaneous Approach, New Technology Group 5 (ICD-10-PCS; principal; 2021-01-14)
DX: U07.1 COVID-19 (principal); J12.82 Pneumonia due to coronavirus disease 2019; J96.01 Acute respiratory failure with hypoxia; Z88.8 Allergy status to other drugs, medicaments and biological substances; I12.9 Hypertensive chronic kidney disease with stage 1 through stage 4 chronic kidney disease, or unspecified chronic kidney disease; E11.22 Type 2 diabetes mellitus with diabetic chronic kidney disease; N18.2 Chronic kidney disease, stage 2 (mild)
CPT/HCPCS: 10879

== ENCOUNTER 2021-04-22 14:33 | Inpatient (IN) | payer OTHER ==
[~2021-04-22] VITALS: Ht 177.8 cm; Wt 139.7 kg
[~2021-04-22 14:33] MED LIST changes: +ACEROLA C500 MG PO; +BAYER CHEWABLE81 MG PO; +CEFDINIR300 MG PO; +DECADRON6 MG PO; +LOPRESSOR50 PO; +MELATONIN5 M1 PO; +MUCINEX600 MG PO; +NORVASC5 MG PO; +PROAIR HFA8.5 GM INH; +PROVENTIL HFA6.7 G1 INH; +TESSALON PERLE100 MG PO; +VITAMIN D325 MC2 PO; +ZINC SULFATE50 MG PO
[2021-04-22 14:35] VITALS: BP 180/117
[2021-04-22 15:29] LABS: BE(vivo) 0.8 mmol/L (-2 to +3); HCO3 23.9 mmol/L (22.0-26.0); PCO2 34.1 mmHg (35.0-45.0); PO2 58.2 mmHg (80.0-100.0); pH 7.463 (7.360-7.450); sO2 91.9 % (92.0-98.0)
[2021-04-22 15:41] LABS: ABSOLUTE NEUTROPHILS 8.5 thou/uL (1.4-8.2); BASOPHILS 0.9 % (0.0-2.0); EOSINOPHILS 0.6 % (0.0-3.0); HEMATOCRIT 47.2 % (42.0-52.0); HEMOGLOBIN 15.2 gm/dL (14.0-18.0); LYMPHOCYTES 11.9 % (24.0-44.0); MCH 28.5 pg (26.0-34.0); MCHC 32.2 g/dL (28.0-37.0); MCV 88.4 fL (80.0-100.0); MONOCYTES 8.9 % (1.0-8.0); PLATELET COUNT 252 thou/uL (150-400); POLYS 77.7 % (36.0-66.0); RBC 5.34 mil/uL (4.50-6.00); RDW 16.7 % (10.5-14.5); WBC 10.9 thou/uL (4.0-11.0)
[2021-04-22 15:54] LABS: CALCIUM 8.8 mg/dL (8.5-10.1); CREATININE 1.1 mg/dL (0.7-1.3); POTASSIUM 4.2 mmol/L (3.5-5.1)
[2021-04-22 15:58] LABS: APTT 28.5 Seconds (24.5-32.8); D-DIMER 1.01 ug/mLFEU (0.19-0.50); INR 0.97; PROTIME 10.6 Seconds (10.5-12.1)
[2021-04-22 16:05] LABS: ALBUMIN 3.2 g/dL (3.4-5.0); MAGNESIUM 1.8 mg/dL (1.8-2.4); TOTAL BILIRUBIN 0.6 mg/dL (0.2-1.0); TOTAL PROTEIN 7.6 g/dL (6.4-8.2)
[2021-04-22 22:02] VITALS: BP 154/108
[2021-04-23 01:00] LABS: CALCIUM 8.5 mg/dL (8.5-10.1); CREATININE 1.4 mg/dL (0.7-1.3); POTASSIUM 4.4 mmol/L (3.5-5.1)
--- NOTE | 2021-04-23 04:57 | NUR ---
890CC OF URINE FROM [facility]
--- NOTE | 2021-04-23 07:42 | EKG ---
[address] [place] [address] ELECTROCARDIOGRAM REPORT Name: DESTIN WHITFIELD ANABEL Room #: 140-3 ADM IN M.R.#: [id number] Admission: 04/22/21 Attend Phys: Tree Zurita MD Discharge: Date of : 69 Report #: [id number] [facility] ED Test Date: 2021-04-22 Test Time: 14:50:22 Pat Name: DESTIN WHITFIELD Department: Room: 140 Gender: M Terrazzo Worker: PADMINI PHILLIPS : 1965 Requested By: Yuliya Hilario Order Number: [id number] MD: Jim Aviles Measurements Intervals [place] Rate: 112 P: 50 MN: 145 QRS: 75 QRSD: 102 T: 79 QT: 337 QTc: 460 Interpretive Statements Sinus tachycardia Probable left atrial enlargement Nonspecific T abnormalities, lateral leads Artifact in lead(s) I,II,III,aVR,aVL,aVF,V2,V5,V6 Compared to ECG 01/14/2021 18:14:19 T-wave abnormality now present Electronically Signed On 04-23-2021 7:42:19 ZIGZAG APPLIQUER by Jim Aviles [email or web address] <ELECTRONICALLY SIGNED> By: Jim Aviles MD, FAC 04/23/21 0742 1450 1450 Jim Aviles MD, [facility] /EPI
--- NOTE | 2021-04-23 07:44 | EKG ---
[address] [address] ELECTROCARDIOGRAM REPORT Name: DESTIN WHITFIELD ANABEL Room #: 140-3 ADM IN M.R.#: [id number] Admission: 04/22/21 Attend Phys: Tree Zurita MD Discharge: Date of : 69 Report #: [id number] [facility] ED Test Date: 2021-04-22 Test Time: 18:20:01 Pat Name: DESTIN WHITFIELD Department: Room: 140 3 Gender: M Aligner: ROXANE : 1965 Requested By: Yuliya Hilario Order Number: [id number] MD: Jim Aviles Measurements Intervals [place] Rate: 114 P: 59 TN: 154 QRS: 62 QRSD: 92 T: 87 QT: 359 QTc: 495 Interpretive Statements Sinus tachycardia Left atrial enlargement Baseline wander in lead(s) V1 Compared to ECG 04/22/2021 16:51:22 Myocardial infarct finding no longer present Electronically Signed On 04-23-2021 7:44:22 CHOCOLATE PACKER by Jim Aviles [email or web address] <ELECTRONICALLY SIGNED> By: Jim Aviles MD, [facility] 04/23/21 0744 19 19 Jim Aviles MD, [facility] /EPI
--- NOTE | 2021-04-23 07:44 | EKG ---
[place] [address] [email or web address] [place] [address] ELECTROCARDIOGRAM REPORT Name: DESTIN WHITFIELD ANABEL Room #: 140-3 ADM IN M.R.#: [id number] Admission: 04/22/21 Attend Phys: Tree Zurita MD Discharge: Date of : 69 Report #: [id number] [facility] ED Test Date: 2021-04-22 Test Time: 16:51:22 Pat Name: DESTIN WHITFIELD Department: Room: [facility] Gender: M Disk Sander: [id number] : 1965 Requested By: Yuliya Hilario Order Number: [id number] MD: Jim Aviles Measurements Intervals [place] Rate: 110 P: 112 VA: 154 QRS: 123 QRSD: 92 T: 128 QT: 380 QTc: 515 Interpretive Statements Right and left arm electrode reversal, interpretation assumes no reversal Sinus tachycardia Probable left atrial enlargement Artifact in lead(s) I,II,aVR,aVL,aVF Compared to ECG 04/22/2021 14:50:22 T-wave abnormality no longer present Electronically Signed On 04-23-2021 7:43:54 HOSPITALIST PROGRAM DIRECTOR by Jim Aviles [email or web address] <ELECTRONICALLY SIGNED> By: Jim Aviles MD, FACC 04/23/21 0743 1651 1651 Jim Aviles MD, [facility] /EPI
--- NOTE | 2021-04-23 10:22 | 2DMMODE ---
[address] [address] 2 D/M-MODE ECHOCARDIOGRAM Name: DESTIN WHITFIELD ANABEL Room #: 140-3 ADM IN M.R.#: [id number] Admission: 04/22/21 Attend Phys: Tree Zurita MD Discharge: Date of : 69 Report #: [id number] THIS REPORT FOR: cc: SESAR WOODWARD MD Physician not on staff Pete Summers MD ~ APPROVED REPORT Study performed: 04/23/2021 09:43:37 EXAM: Comprehensive 2D, Doppler, and color-flow Echocardiogram Patient Location: ER Room #: 10 Status: routine BSA: 2.65 HR: 96 bpm BP: 165/83 mmHg Indications Congestive Heart Failure Diabetes Dyspnea Hypertension/HDD Left Ventricle The left ventricle is normal size. There is normal LV segmental wall motion. There is normal left ventricular wall thickness. Left ventricular systolic function is borderline. LVEF is 50%. Right Ventricle The right ventricle is normal size. The right ventricular systolic function is normal. Atria The left atrium size is normal. The right atrium size is normal. Aortic Valve The aortic valve is normal in structure. No aortic regurgitation is present. There is no aortic valvular stenosis. Mitral Valve The mitral valve is normal in structure. Mild mitral regurgitation. No evidence of mitral valve stenosis. [address] [address] 2 D/M-MODE ECHOCARDIOGRAM Name: DESTIN WHITFIELD Room #: 140-3 ADM IN M.R.#: [id number] Admission: 04/22/21 Attend Phys: Tree Zurita, Discharge: Date of : 69 Report #: [id number] Tricuspid Valve The tricuspid valve is normal in structure. There is no tricuspid valve regurgitation noted. Pulmonic Valve The pulmonary valve is normal in structure. Great Vessels The aortic root is normal in size. IVC is normal in size and collapses >50% with inspiration. Pericardium There is no pericardial effusion. <Conclusion> The left ventricle is normal size. LVEF is 50%. The right ventricle is normal size. The left atrium size is normal. The aortic valve is normal in structure. The mitral valve is normal in structure. Mild mitral regurgitation. The tricuspid valve is normal in structure. The pulmonary valve is normal in structure. The aortic root is normal in size. There is no pericardial effusion. <ELECTRONICALLY SIGNED> By: Pete Summers MD 04/23/21 1021 1021 1021 Pete Summers MD /INF
[2021-04-23 18:24] VITALS: BP 128/79
[2021-04-23 20:02] VITALS: BP 147/77
--- NOTE | 2021-04-23 22:50 | NUR ---
PATIENT IS A NEW ADMISSION TO THE UNIT THIS SHIFT. HE WAS ABLE TO TRANSFER TO THE BED WITH ASSISTANCE INCIDENT FREE. PATIENT IS FULLY ALERT AND ORIENTED AND ABLE TO PARTICIPATE FULLY IN CARE AND CALL APPROPRIATELY FOR NEEDS. NURSE TO COMPLETE ADMISSION AND INITIATE PLAN OF CARE.
[2021-04-23 23:39] VITALS: BP 115/67
[2021-04-24 03:27] VITALS: BP 130/51
--- NOTE | 2021-04-24 03:40 | NUR ---
STAT EKG OBTAINED FOR LABILE HEART RATES AND EXTENDED PAUSE. PATIENT ASSYMPTOMATIC THROUGHOUT.
[2021-04-24 07:19] VITALS: BP 148/87
[2021-04-24 10:26] LABS: CALCIUM 9.3 mg/dL (8.5-10.1); CREATININE 1.4 mg/dL (0.7-1.3); POTASSIUM 3.8 mmol/L (3.5-5.1)
[2021-04-24 11:03] VITALS: BP 146/75
--- NOTE | 2021-04-24 11:27 | NUR ---
Consulted r/t BMI 50.2, extreme class III obesity. Pt noted with hx multiple admits. PMH: COPD, CHF, DMII, CKD, hx covid 12/2020, chronic BLE edema. With long hx medical noncompliance, on insulin, diuretics. Current cardiac abnormalities, stat EKG ordered, cardiology following. DM under fair control with A1c 7.1 in Dec. Pt denies any change in weight or appetite recently and declines need for nutrition education r/t DMII, CKD, or weight loss strategies. Per meditech wt hx, pts wt continues to increase. Currently up 10 lb from December, which could be fluid related. Follow weight and intake trends. Low nutrition risk.
--- NOTE | 2021-04-24 11:32 | EKG ---
[place] [address] [facility] [place] [address] ELECTROCARDIOGRAM REPORT Name: DESTIN WHITFIELD ANABEL Room #: 208-P ADM IN M.R.#: [id number] Admission: 04/22/21 Attend Phys: Tree Zurita MD Discharge: Date of : 69 Report #: [id number] [facility] Test Date: 2021-04-24 Test Time: 03:22:00 Pat Name: DESTIN WHITFIELD Department: Room: 208 P Gender: M Air Hammer Stripper: KRYSTAL BOWEN : 1965 Requested By: Sher Conteh Order Number: [id number] MD: Devonte Camacho Measurements Intervals [place] Rate: 89 P: 62 NJ: 166 QRS: 63 QRSD: 95 T: 112 QT: 415 QTc: 505 Interpretive Statements Sinus rhythm Nonspecific T abnormalities, lateral leads Prolonged QT interval Compared to ECG 04/22/2021 18:20:01 T-wave abnormality now present Sinus tachycardia no longer present Electronically Signed On 04-24-2021 11:31:39 FINGERPRINT CLASSIFIER by Devonte Camacho [email or web address] <ELECTRONICALLY SIGNED> By: Devonte Camacho MD, [facility] 04/24/21 1131 0322 0322 Devonte Camacho MD, [facility] /EPI
[2021-04-24 11:44] LABS: ABSOLUTE NEUTROPHILS 7.7 thou/uL (1.4-8.2); EOSINOPHILS 0.4 % (0.0-3.0); HEMATOCRIT 48.1 % (42.0-52.0); HEMOGLOBIN 15.6 gm/dL (14.0-18.0); LYMPHOCYTES 15.7 % (24.0-44.0); MCH 28.6 pg (26.0-34.0); MCHC 32.5 g/dL (28.0-37.0); PLATELET COUNT 262 thou/uL (150-400); POLYS 72.9 % (36.0-66.0); RBC 5.47 mil/uL (4.50-6.00); RDW 16.7 % (10.5-14.5); WBC 10.6 thou/uL (4.0-11.0)
[2021-04-24 15:04] VITALS: BP 130/71
--- NOTE | 2021-04-24 19:41 | NUR ---
ASSESSMENT CHARTED - MEDS PER MAR - NO CO'S OF PAIN OR NAUSEA. LALY DIET AND FLUIDS. PT ACCUCHECKS CHARTED - COVERED PER SSI PRN. [facility] CATH GOOD OUTPUT THIS SHIFT 2400CC. PT WITH CO'S OF HEADACHE GIVEN TYLENOL WITH NO FURTHER CO'S. PT HAS RESTED IN BED THIS SHIFT - NO CO'S AT THE PRESENT TIME.
[2021-04-24 20:34] VITALS: BP 124/90
[2021-04-24 20:35] VITALS: BP 124/90
[2021-04-25 04:24] LABS: CALCIUM 8.7 mg/dL (8.5-10.1); CREATININE 1.2 mg/dL (0.7-1.3); POTASSIUM 3.7 mmol/L (3.5-5.1)
[2021-04-25 05:51] VITALS: BP 145/77
[2021-04-25 08:00] VITALS: BP 139/91
[2021-04-25] MEDS ORDERED: BENICAR40 MG PO (10:03)
[2021-04-25] MEDS ORDERED: AMLODIPINE BESY10 MG PO (10:03)
[2021-04-25] MEDS ORDERED: LIPITOR40 MG PO (10:03)
[2021-04-25] MEDS ORDERED: TORSEMIDE20 MG PO (10:06)
[2021-04-25] MEDS ORDERED: METOPROLOL TART25 MG PO (10:07)
[2021-04-25 12:00] VITALS: BP 115/78
--- NOTE | 2021-04-25 15:30 | NUR ---
Assumed care of pt this AM. Pt is A&O x4, received on 3L NC. SR on the monitor. Pt denies any pain. At approx. 1445, pt reported not being able to breathe. Nurse went into pts room, sat pt up, pt sating okay. RT was initially called. Pt states he started feeling better after being sat up & thought difficulty breathing may have been d/t information that was just told to him. No issues since. Fall precautions in place. Frequent rounding in place.
[2021-04-25 16:30] VITALS: BP 102/62
--- NOTE | 2021-04-25 20:03 | NUR ---
Assumed care of pt this AM. Pt is A&O x4, on 2L NC, SR on the monitor. Pt with reported difficulty breathing this morning. Pt put on sat probe & pt sating high 90s. Sat pt up as he was laying down. Explain pt needs to stay up for the most part. Pt reports he thinks maybe it was due to news he had received from visitor. Gordon removed this shift. Approx. 1800, after pt was done in shower, pt started crying, stating that his abd was hurting. Pt had no UOP after gordon removal, but reported he had urinated in the shower. This nurse & a 2nd nurse bladder scanned pt, but was unable to find the bladder. Notified provider & received orders for CT. Orders carried out.
[2021-04-25 20:15] VITALS: BP 118/73
[2021-04-26 01:24] LABS: URINE BILIRUBIN NEGATIVE (Negative); URINE BLOOD 1+ (Negative); URINE CLARITY CLEAR; URINE COLOR YELLOW; URINE GLUCOSE-RANDOM* NEGATIVE (Negative); URINE KETONES NEGATIVE (Negative); URINE LEUKOCYTES-REFLEX NEGATIVE (Negative); URINE NITRITE-REFLEX NEGATIVE (Negative); URINE PROTEIN (DIPSTICK) NEGATIVE (Negative); URINE SPECIFIC GRAVITY <= 1.005 (1.005-1.035); URINE UROBILINOGEN 0.2 E.U./dl (0.2-1.0)
[2021-04-26 01:38] LABS: BACTERIA-REFLEX None Seen /HPF (None Seen); CRYSTALS None Seen /LPF (None Seen); HYALINE CASTS 0-3 Few /LPF (None Seen); SQUAMOUS 0-3 Few /LPF (0-3); URINE RBC 1-2 Rare /HPF (NONE SEEN); URINE WBC-REFLEX None Seen /HPF (0-5)
--- NOTE | 2021-04-26 02:50 | NUR ---
ALERT AND ORIENTEDX4, PT TAKEN FOR CT OF THE ABDOMEN AND PELVIS, IV TO THE R. HAND INFILTRATED, L. HAND SWELLING NOTED, WARM COMPRESS APPLIED, REMAINS ON 2L OF O2 VIA NASAL CANULA, O2SATS STABLE, SA/PVCS ON TELE, DENIES ABDOMINAL PAIN, PT ABLE TO VOID THIS SHIFT, NO ACUTE DISTRESS NOTED, WILL CONTINUE TO MONITOR PER POC
[2021-04-26 04:25] LABS: HEMATOCRIT 48.5 % (42.0-52.0); HEMOGLOBIN 15.8 gm/dL (14.0-18.0); MCH 28.7 pg (26.0-34.0); MCHC 32.6 g/dL (28.0-37.0); MCV 87.9 fL (80.0-100.0); RBC 5.52 mil/uL (4.50-6.00); RDW 16.7 % (10.5-14.5); WBC 11.7 thou/uL (4.0-11.0)
[2021-04-26 04:45] VITALS: BP 96/55
[2021-04-26 04:47] LABS: CREATININE 2.1 mg/dL (0.7-1.3)
[2021-04-26 04:55] LABS: POTASSIUM 4.5 mmol/L (3.5-5.1)
[2021-04-26 08:00] VITALS: BP 119/64
[2021-04-26 12:00] VITALS: BP 110/71
--- NOTE | 2021-04-26 12:56 | NUR ---
Assumed care of pt this AM. Pt is A&O x4, on 2L NC, Sr on the monitor. Pt denies pain to lt hand but hand is still edematous. Pt using urinal at bedside. Pt w/ no other complaints. Frequent rounding in place. Call light within reach.
[2021-04-26 16:30] VITALS: BP 90/46
[2021-04-26 19:54] VITALS: BP 103/61
[2021-04-27 04:05] VITALS: BP 123/67
[2021-04-27 04:19] LABS: CALCIUM 8.5 mg/dL (8.5-10.1); CREATININE 2.9 mg/dL (0.7-1.3); POTASSIUM 4.4 mmol/L (3.5-5.1)
[2021-04-27 08:00] VITALS: BP 109/74
[2021-04-27 12:05] VITALS: BP 119/69
[2021-04-27 16:10] VITALS: BP 139/73
--- NOTE | 2021-04-27 16:20 | NUR ---
CM FOLLOWING FOR DC NEEDS. THIS CM ATTEMPT TO ASSESS PT X 2. PT WAS SLEEPING NO ASSESSMENT MADE. WILL CONTINUE TO FOLLOW FOR DC NEEDS.
--- NOTE | 2021-04-27 18:34 | NUR ---
PATIENT RESTED IN BED THROUGHOUT THE SHIFT. DENIED ANY COMPLAINTS THROUGHOUT. NO BM TODAY. MODERATE URINARY OUTPUT.
[2021-04-27 20:48] VITALS: BP 118/78
[2021-04-28 05:40] VITALS: BP 149/80
[2021-04-28 07:00] VITALS: BP 134/64
--- NOTE | 2021-04-28 09:27 | NUR ---
Chart review. 56 year old male, came to ED. He has been her in the past. Dx acute hypoxemia resp failure and CHF. He been noncompliant with his medication in the past. DANIEL visited with dk at bedside, noted on o2 per nasal cannula, at home only uses oxygen 2L at bedtime. Lives at home with his , children and foster kids. He helps his out as much as he can, she has lupus. 3 steps to enter the home. No dme, manage own medication, no money for medication, not taking any in a while. PCP Dr dm rojas at [facility] in [place]. Drives vehicle per dk. Education on follow up with his pcp and cont taking his medication. 1 month vouched medication for dc home. His will be able to pick him up at [place]. Cm passed on information to bedside nurse to he will get him medication before he dc from [facility].
[2021-04-28 11:00] VITALS: BP 134/64; BP 141/75
[2021-04-28 15:00] VITALS: BP 118/63
[2021-04-28 15:52] LABS: ABSOLUTE NEUTROPHILS 6.9 thou/uL (1.4-8.2); HEMATOCRIT 47.3 % (42.0-52.0); HEMOGLOBIN 14.8 gm/dL (14.0-18.0); LYMPHOCYTES 18.4 % (24.0-44.0); MCH 28.1 pg (26.0-34.0); MCHC 31.4 g/dL (28.0-37.0); MCV 89.6 fL (80.0-100.0); MONOCYTES 11.9 % (1.0-8.0); PLATELET COUNT 240 thou/uL (150-400); POLYS 66.7 % (36.0-66.0); RBC 5.28 mil/uL (4.50-6.00); RDW 16.3 % (10.5-14.5); WBC 10.4 thou/uL (4.0-11.0)
[2021-04-28 15:59] LABS: CALCIUM 8.7 mg/dL (8.5-10.1); POTASSIUM 4.8 mmol/L (3.5-5.1)
[2021-04-28 16:05] LABS: CREATININE 1.8 mg/dL (0.7-1.3)
[2021-04-28 16:37] VITALS: BP 134/64
--- NOTE | 2021-04-28 17:02 | NUR ---
DISCHARGED PATIENT. EXPLAINED DISCHARGE INSTRUCTIONS TO PATIENT AND SPOUSE. HIGHLIGHTED APPOINTMENTS AND NEW MEDICATIONS. PATIENT AND SPOUSE STATED THEY UNDERSTOOD AND DENIED HAVING ANY FURTHER QUESTIONS. REMOVED IV WITH TIP INTACT AND REMOVED REVENUE STAMP CLERK.
== END 2021-04-28 17:27 | disposition home or self-care (01) | DRG 291 ==
LOC: ER 14:33 → ADMC 19:50 → 2N 19:50
PROVIDERS: Internal Medicine; Nurse Practitioner Family; ADMIT Hospitalist; ATTEND Hospitalist
DX: I13.0 Hypertensive heart and chronic kidney disease with heart failure and stage 1 through stage 4 chronic kidney disease, or unspecified chronic kidney disease (principal); J96.21 Acute and chronic respiratory failure with hypoxia; I50.30 Unspecified diastolic (congestive) heart failure; N17.9 Acute kidney failure, unspecified; F17.210 Nicotine dependence, cigarettes, uncomplicated; Z68.41 Body mass index [BMI] 40.0-44.9, adult; E11.22 Type 2 diabetes mellitus with diabetic chronic kidney disease; K27.9 Peptic ulcer, site unspecified, unspecified as acute or chronic, without hemorrhage or perforation; M19.90 Unspecified osteoarthritis, unspecified site; J44.9 Chronic obstructive pulmonary disease, unspecified; E66.01 Morbid (severe) obesity due to excess calories; G47.33 Obstructive sleep apnea (adult) (pediatric); N18.2 Chronic kidney disease, stage 2 (mild); Z87.11 Personal history of peptic ulcer disease; Z88.6 Allergy status to analgesic agent; Z71.6 Tobacco abuse counseling; Z88.2 Allergy status to sulfonamides; Z83.3 Family history of diabetes mellitus; Z82.49 Family history of ischemic heart disease and other diseases of the circulatory system; Z91.14 Patient's other noncompliance with medication regimen
CPT/HCPCS: 10040; 10081